=== PATIENT | male | born 1955 | race Caucasian/White ===

== ENCOUNTER → 2017-02-13 | Outpatient (CLI) | payer MEDICARE ==
[~2017-02-13] MED LIST: ADV1DS IH; ASP325T PO; CARV3.122 PO; CLOP75TA PO; HYDR-3454 PO; OMEP20CA12 PO; RANO10003 PO
--- NOTE | 2017-02-13 12:00 | Diagnostic Imaging Report ---
INDICATION: Shortness of breath on exertion. FINDINGS: There is mild cardiomegaly. There has been previous median sternotomy. There is coronary artery bypass graft. There is minimal bibasilar scarring or atelectasis. There is no pleural effusion or pneumothorax. Mediastinum is unremarkable. IMPRESSION: Mild cardiomegaly and some minimal bibasilar atelectasis and/or pneumonitis. Dictated by: Dictated on workstation # [id number]
== END ==
LOC: RAD 09:44
PROVIDERS: ATTEND Internal Medicine Critical Care Medicine
DX: R06.02 Shortness of breath (principal); J44.9 Chronic obstructive pulmonary disease, unspecified; J45.909 Unspecified asthma, uncomplicated
CPT/HCPCS: 71020

== ENCOUNTER → 2017-02-21 | Outpatient (CLI) | payer MEDICARE ==
[~2017-02-21] MED LIST changes: +RT-ALBUTEROL SULF 2.5 MG/3 ML PRE-MIX VIAL IH ONE
== END ==
LOC: RT 15:05
PROVIDERS: ATTEND Nurse Practitioner Family
DX: J44.9 Chronic obstructive pulmonary disease, unspecified (principal); R06.02 Shortness of breath; Z72.0 Tobacco use; J45.909 Unspecified asthma, uncomplicated
CPT/HCPCS: 94060; 94640; 94726; 94729

== ENCOUNTER 2019-01-14 16:59 | Emergency (ER) | payer MEDICARE ==
[~2019-01-14] VITALS: Ht 172.7 cm; Wt 93.0 kg
[~2019-01-14 16:59] MED LIST changes: -RT-ALBUTEROL SULF 2.5 MG/3 ML PRE-MIX VIAL IH ONE
[2019-01-14] MEDS ORDERED: NITROGLYCERIN 2% OINT 1 GM UNIT DOSE PACKET TOP ONE (17:15)
--- NOTE | 2019-01-14 17:17 | ED Chest Pain ---
General Chief Complaint: Chest Pain Stated Complaint: CHEST PAIN Nursing Triage Note: PT AMBULATE TO ROOM 5 WITH CO CHEST PAIN STARTING LAST NIGHT. Nursing Sepsis Screen: No Definite Risk Source: patient, family Exam Limitations: no limitations History of Present Illness Date Seen by Provider: Jan 14, 2019 Time Seen by Provider: 17:13 Initial Comments This 64-year-old white male presents with a complaint of chest pain. The patient is status post bypass surgery. His coordinator of rehabilitation services is in [place]. Patient scheduled for a stress test on Friday with his coordinator of rehabilitation services. The patient describes a series of episodes consisting of moderate to severe chest pain that lasts for only a few minutes. The patient's chest pain appears to be improved with nitroglycerin although frequently the chest pain abates be fore the patient can initiate his sublingual nitroglycerin. Patient denies fever, chills, remarkable radiation of the pressure type anterior moderately severe chest pain, nausea, diaphoresis, headache photophobia or neck pain. Allergies and Home Medications Allergies Coded Allergies: No Known Drug Allergies (Unverified , 08/20/13) Home Medications Aspirin 325 Mg Tab, 325 MG PO DAILY Prescribed by: DELIO WALDEN on 08/20/13 1035 Carvedilol 3.125 Mg Tablet, 1 EACH PO BID Prescribed by: DELIO WALDEN on 08/20/13 1035 Clopidogrel Bisulfate 75 Mg Tablet, 1 EACH PO DAILY Prescribed by: DELIO WALDEN on 08/20/13 1035 Fluticasone/Salmeterol 250 Mcg/50 Mcg Inh, 1 SPRAY IH Q12H Prescribed by: DELIO WALDEN on 08/20/13 1035 Hydrocodone Bit/Acetaminophen 1 Each Tablet, 1-2 EACH PO Q4H PRN for PAIN Prescribed by: AMANDA GUSMAN on 08/21/13 1043 Omeprazole 20 Mg Capsule.dr, 20 MG PO DAILY Prescribed by: DELIO WALDEN on 08/20/13 1035 Ranolazine 1,000 Mg Tab.sr.12h, 500 MG PO BID Prescribed by: DELIO WALDEN on 08/20/13 1035 Patient Home Medication List Home Medication List Reviewed: Yes Review of Systems Review of Systems Constitutional: No chills EENTM: No Double Vision Respiratory: Denies Cough Cardiovascular: Chest Pain; Denies Lightheadedness, Denies Palpitations, Denies Syncope Gastrointestinal: Denies Abdominal Pain Genitourinary: Denies Burning Musculoskeletal: No back pain Skin: No change in color, No rash Psychiatric/Neurological: No Symptoms Reported Endocrine: No Symptoms Reported Hematologic/Lymphatic: No Symptoms Reported Past Uwadtzs-Cggpxa-Boofva Hx Past Med/Social Hx: Reviewed Nursing Past Med/Soc Hx Patient Social History Alcohol Use: Occasionally Uses Recreational Drug Use: No Smoking Status: Current Someday Smoker Type Used: Cigarettes Recent Foreign Travel: No Contact w/Someone Who Travel: No Recent Infectious Disease Expo: No Recent Hopitalizations: No Immunizations Up To Date Tetanus Booster (TDap): More than 5yrs Date of Pneumonia Vaccine: Jun 09, 2008 Date of Influenza Vaccine: Apr 09, 2013 Seasonal Allergies Seasonal Allergies: Yes Past Medical History Surgeries: Yes (Left shoulder, CABG 2010, CARDIAC STENTS 2002) Respiratory: Yes Asthma, Pneumonia, COPD Cardiac: Yes Coronary Artery Disease, High Cholesterol, Hypertension Neurological: No Reproductive Disorders: No Sexually Transmitted Disease: No HIV/AIDS: No Genitourinary: No Gastrointestinal: Yes Gastroesophageal Reflux, Gall Bladder Disease Musculoskeletal: No Fractures Endocrine: No HEENT: Yes Cataract Loss of Vision: Denies Hearing Impairment: Denies Cancer: No Psychosocial: Yes Anxiety Integumentary: No Blood Disorders: No Family Medical History Chest pain 03 FATHER Congestive heart failure 03 FATHER Heart disease 03 FATHER Psychotic disorder 03 MOTHER No Family History of: Abdominal aortic aneurysm [place] disease Alcoholism Aphasia Cancer Cancer of colon Cataract Congenital heart disease Cystic fibrosis Dementia Dysphagia Family history: Allergy Family history: Alzheimer's disease Family history: Arthritis Family history: Asthma Family history: Breast disease Family history: Cardiovascular disease Family history: Coronary thrombosis Family history: Diabetes mellitus Family history: Gastrointestinal disease Family history: Glaucoma Family history: Hypertension Family history: Osteoporosis Family history: Thyroid disorder Headache Hearing loss Hereditary disease History of - anemia History of - disorder History of - respiratory disease History of drug abuse Human immunodeficiency virus (HIV) seropositivity Hypercholesterolemia Infertile Kidney disease Malignant neoplasm of lung Myocardial infarction Parkinson's disease Prostate cancer Seizure disorder Stroke Tuberculosis Visual impairment Physical Exam Vital Signs Vital Signs - First Documented 01/14/19 17:03 Temp 99.2 Pulse 87 Resp 15 B/P (MAP) 173/102 (125) Pulse Ox 96 O2 Delivery Room Air Capillary Refill : Less Than 3 Seconds Height, Weight, BMI Height: 5'8.00" Weight: 205lbs. 0.0oz. 92.367659ii; BMI Method:Stated General Appearance: No Apparent Distress, WD/WN HEENT: PERRL/EOMI, TMs Normal, Normal ENT Inspection Neck: Full Range of Motion, Normal Inspection, Non Tender Respiratory: Chest Non Tender, Lungs Clear, Normal Breath Sounds Cardiovascular: Regular Rate, Rhythm, No Murmur Gastrointestinal: Normal Bowel Sounds, Non Tender, Soft Extremity: Normal Capillary Refill, Normal Inspection Neurologic/Psychiatric: No Motor/Sensory Deficits, Normal Mood/Affect Skin: Normal Color, Warm/Dry Progress/Results/Core Measures Results/Orders Lab Results Laboratory Tests Test 01/14/19 17:05 Range/Units White Blood Count 9.8 4.3-11.0 10^3/uL Red Blood Count 4.84 4.35-5.85 10^6/uL Hemoglobin 14.9 13.3-17.7 G/DL Hematocrit 44 40-54 % Mean Corpuscular Volume 91 80-99 FL Mean Corpuscular Hemoglobin 31 25-34 PG Mean Corpuscular Hemoglobin Concent 34 32-36 G/DL Red Cell Distribution Width 13.0 10.0-14.5 % Platelet Count 293 130-400 10^3/uL Mean Platelet Volume 9.3 7.4-10.4 FL Neutrophils (%) (Auto) 59 42-75 % Lymphocytes (%) (Auto) 25 12-44 % Monocytes (%) (Auto) 9 0-12 % Eosinophils (%) (Auto) 7 0-10 % Basophils (%) (Auto) 0 0-10 % Neutrophils # (Auto) 5.8 1.8-7.8 X 10^3 Lymphocytes # (Auto) 2.4 1.0-4.0 X 10^3 Monocytes # (Auto) 0.8 0.0-1.0 X 10^3 Eosinophils # (Auto) 0.7 H 0.0-0.3 10^3/uL Basophils # (Auto) 0.0 0.0-0.1 10^3/uL Prothrombin Time 12.6 12.2-14.7 SEC INR Comment 0.9 0.8-1.4 Activated Partial Thromboplast Time 27 24-35 SEC Sodium Level 139 135-145 MMOL/L Potassium Level 4.4 3.6-5.0 MMOL/L Chloride Level 106 98-107 MMOL/L Carbon Dioxide Level 23 21-32 MMOL/L Anion Gap 10 5-14 MMOL/L Blood Urea Nitrogen 16 7-18 MG/DL Creatinine 1.35 H 0.60-1.30 MG/DL Estimat Glomerular Filtration Rate 53 BUN/Creatinine Ratio 12 Glucose Level 149 H 70-105 MG/DL Calcium Level 9.7 8.5-10.1 MG/DL Corrected Calcium 9.4 8.5-10.1 MG/DL Magnesium Level 2.4 1.8-2.4 MG/DL Total Bilirubin 0.3 0.1-1.0 MG/DL Aspartate Amino Transf (AST/SGOT) 15 5-34 U/L Alanine Aminotransferase (ALT/SGPT) 20 0-55 U/L Alkaline Phosphatase 65 40-136 U/L Myoglobin 97.5 H 10.0-92.0 NG/ML Troponin I 0.075 H <0.028 NG/ML Total Protein 7.8 6.4-8.2 GM/DL Albumin 4.4 3.2-4.5 GM/DL My Orders Orders - TANIKA, GARRICK Rizvi MD Cbc With Automated Diff (01/14/19 17:12) Magnesium (01/14/19 17:12) Chest 1 View, Ap/Pa Only (01/14/19 17:12) Ekg Tracing (01/14/19 17:12) Cardiac Profile 1 (01/14/19 17:12) Comprehensive Metabolic Panel (01/14/19 17:12) Myoglobin Serum (01/14/19 17:12) Protime With Inr (01/14/19 17:12) Partial Thromboplastin Time (01/14/19 17:12) O2 (01/14/19 17:12) Monitor-Rhythm Ecg Trace Only (01/14/19 17:12) Lipid Panel (01/15/19 06:00) Ed Iv/Invasive Line Start (01/14/19 17:12) Nitroglycerin Ointment (Nitrobid Ointme (01/14/19 17:15) Medications Given in ED Current Medications Medications Dose Ordered Sig/Tina Route Start Time Stop Time Status Last Admin Dose Admin Nitroglycerin 1 inch ONCE ONCE TOP 01/14/19 17:15 01/14/19 17:16 DC 01/14/19 17:27 1 INCH Vital Signs/I&O 01/14/19 01/14/19 17:03 17:13 Temp 99.2 Pulse 87 Resp 15 B/P (MAP) 173/102 (125) Pulse Ox 96 O2 Delivery Room Air Room Air Blood Pressure Mean: 125 Progress Progress Note : Time: 17:58 Progress Note The patient's EKG demonstrated nonspecific ST-T wave changes. The patient's troponin was mildly elevated at 0.075. Treatment patient received an inch of Nitropaste emergency department and had no further chest pain. I placed a call to his coordinator of rehabilitation services, Dr. Salazar, in [facility] for transfer for further eval and care. Departure Impression Primary Impression: Chest pain Qualified Codes: I20.0 - Unstable angina Additional Impressions: Elevated troponin Coronary artery disease Qualified Codes: I25.110 - Atherosclerotic heart disease of [place] coronary artery with unstable angina pectoris Disposition: SHT-TRM HOSP Condition: Improved Departure-Patient Inst. Referrals: [facility] (PCP) Primary Care Physician MADALYN RUSHING APRN (Family) Primary Care Physician GARRICK SAGASTUME MD Jan 14, 2019 17:16
[2019-01-14 17:18] LABS: BASOPHILS % (AUTO) 0 % (0-10); EOSINOPHILS # (AUTO) 0.7 10^3/uL (0.0-0.3); EOSINOPHILS % (AUTO) 7 % (0-10); HEMATOCRIT 44 % (40-54); HEMOGLOBIN 14.9 G/DL (13.3-17.7); LYMPHOCYTES # (AUTO) 2.4 X 10^3 (1.0-4.0); LYMPHOCYTES % (AUTO) 25 % (12-44); MEAN CORPUSCULAR HEMOGLOBIN 31 PG (25-34); MEAN CORPUSCULAR HGB CONC 34 G/DL (32-36); MEAN CORPUSCULAR VOLUME 91 FL (80-99); MEAN PLATELET VOLUME 9.3 FL (7.4-10.4); MONOCYTES # (AUTO) 0.8 X 10^3 (0.0-1.0); MONOCYTES % (AUTO) 9 % (0-12); NEUTROPHILS # (AUTO) 5.8 X 10^3 (1.8-7.8); NEUTROPHILS % (AUTO) 59 % (42-75); PLATELET COUNT 293 10^3/uL (130-400); WHITE BLOOD COUNT 9.8 10^3/uL (4.3-11.0)
--- NOTE | 2019-01-14 17:34 | Diagnostic Imaging Report ---
INDICATION: Chest pain. COMPARISON: Comparison made with prior examination from 02/13/2017. FINDINGS: There is cardiomegaly. There has been previous median sternotomy and coronary artery bypass graft. There is no pleural effusion, pneumothorax, or pneumonia. Mediastinum is unremarkable. IMPRESSION: No acute cardiopulmonary abnormality. Mild cardiomegaly. Dictated by: Dictated on workstation # [id number]
[2019-01-14 17:38] LABS: INR 0.9 (0.8-1.4); PROTHROMBIN TIME PATIENT 12.6 SEC (12.2-14.7)
[2019-01-14 17:43] LABS: ALBUMIN 4.4 GM/DL (3.2-4.5); BILIRUBIN,TOTAL 0.3 MG/DL (0.1-1.0); CALCIUM 9.7 MG/DL (8.5-10.1); CREATININE SERUM 1.35 MG/DL (0.60-1.30); MAGNESIUM 2.4 MG/DL (1.8-2.4); POTASSIUM 4.4 MMOL/L (3.6-5.0); TOTAL PROTEIN 7.8 GM/DL (6.4-8.2)
[2019-01-14 19:23] VITALS: BP 135/84
--- OUTSIDE RECORDS SUMMARY | 2019-01-15 00:50 | XMS REPORT ---
Author Author WILLIAM Banegas Organization [facility] Address [address] [place] [address] Care Team Providers Care Flame Planer Name Role Phone WILLIAM Banegas Unavailable PROBLEMS Type Condition ICD9-CM Code ARQ03-LD Code Onset Dates Condition Status SNOMED Code Problem Dental caries K02.9 Active 74909792 Problem Gastroesophageal reflux disease with esophagitis K21.0 Active 865525481 Problem Irregular heart rhythm I49.9 Active 329640965 Problem Elevated LDL cholesterol level E78.00 Active 525892404 Problem Low serum HDL R74.8 Active 339009972 Problem Stable angina pectoris I20.8 Active 407500285 Problem Obesity (BMI 30.0-34.9) E66.9 Active 595775815179333 Problem Moderate episode of recurrent major depressive disorder F33.1 Active 603270379 Problem Periodontal disease K05.6 Active 7560063 Problem Coronary artery disease involving [place] coronary artery of [place] heart without angina pectoris I25.10 Active 2118876270555 Problem Pulmonary emphysema, unspecified emphysema type J43.9 Active 26072781 Problem Dental caries extending into dentine K02.62 Active 166748352 Problem Essential hypertension I10 Active 65574656 ALLERGIES No Known Allergies ENCOUNTERS Encounter Location Date Diagnosis [facility] [id number] [place] [phone] Feb, Coronary artery disease involving [place] coronary artery of [place] heart without angina pectoris I25.10 ; Pulmonary emphysema, unspecified emphysema type J43.9 ; Stable angina pectoris I20.8 ; Gastroesophageal reflux disease with esophagitis K21.0 ; Essential hypertension I10 ; Moderate episode of recurrent major depressive disorder F33.1 and Prediabetes R73.03 [facility] [address] [facility] [id number] [place] [address] Nov, Moderate episode of recurrent major depressive disorder F33.1 and Pulmonary emphysema, unspecified emphysema type J43.9 [facility] [id number] [place] [address] October, Moderate episode of recurrent major depressive disorder F33.1 [facility] [id number] [place] [id number] October, Dental caries K02.9 [facility] [id number] [place] [phone] Sep, Coronary artery disease involving [place] coronary artery of [place] heart without angina pectoris I25.10 ; Essential hypertension I10 ; Prediabetes R73.03 ; Gastroesophageal reflux disease with esophagitis K21.0 ; Elevated LDL cholesterol level E78.00 ; Dental caries K02.9 ; Low serum HDL R74.8 ; Pulmonary emphysema, unspecified emphysema type J43.9 ; Stable angina pectoris I20.8 ; Irregular heart rhythm I49.9 and Obesity (BMI 30.0-34.9) E66.9 [address] [place] [id number] [place] [phone] Sep, Coronary artery disease involving [place] coronary artery of [place] heart without angina pectoris I25.10 ; Gastroesophageal reflux disease with esophagitis K21.0 ; Essential hypertension I10 ; Prediabetes R73.03 ; Elevated LDL cholesterol level E78.00 ; Low serum HDL R74.8 ; Pulmonary emphysema, unspecified emphysema type J43.9 ; Stable angina pectoris I20.8 ; Irregular heart rhythm I49.9 ; Obesity (BMI 30.0-34.9) E66.9 and Dental caries K02.9 [place] [address] [address] Sep, Dental examination Z01.20 ; Periodontal disease K05.6 and Dental caries extending into dentine K02.62 [place] [place] [id number] [place] [phone] Aug, Pulmonary emphysema, unspecified emphysema type J43.9 [place] [id number] [place] [phone] May, Coronary artery disease involving [place] coronary artery of [place] heart without angina pectoris I25.10 ; Pulmonary emphysema, unspecified emphysema type J43.9 ; Elevated fasting glucose R73.01 ; Elevated LDL cholesterol level E78.00 ; Obesity (BMI 30.0-34.9) E66.9 and Gastroesophageal reflux disease with esophagitis K21.0 [address] [place] [id number] [place] [phone] Apr, [facility] [address] [id number] Jan, Dental examination Z01.20 [place] [address] [phone] Jan, [place] [id number] [place] [phone] Jan, Pulmonary emphysema, unspecified emphysema type J43.9 ; Gastroesophageal reflux disease with esophagitis K21.0 ; Obesity (BMI 30.0-34.9) E66.9 ; Irregular heart rhythm I49.9 ; History of coronary artery disease Z86.79 and Stable angina pectoris I20.8 [place] [id number] [place] [phone] Jan, Dental examination Z01.20 and Dental caries K02.9 [id number] [place] [phone] Aug, [id number] [place] [phone] Aug, Pulmonary emphysema, unspecified emphysema type J43.9 ; Elevated hemoglobin A1c R73.09 ; Gastroesophageal reflux disease with esophagitis K21.0 ; Obesity (BMI 30.0-34.9) E66.9 ; Elevated LDL cholesterol level E78.00 ; Low serum HDL R74.8 and Elevated fasting glucose R73.01 [place] [id number] [place] [phone] Jul, Pulmonary emphysema, unspecified emphysema type J43.9 [place] [address] [address] 24 Jul, 2016 [address] [place] [id number] [place] [phone] 21 Jul, 2016 Encounter to establish care Z76.89 ; History of coronary artery disease Z86.79 ; Pulmonary emphysema, unspecified emphysema type J43.9 ; 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 ; Stable angina pectoris I20.8 ; Gastroesophageal reflux disease with esophagitis K21.0 ; Encounter for immunization Z23 ; Dental caries K02.9 ; Obesity (BMI 30.0-34.9) E66.9 and Irregular heart rhythm I49.9 [address] [place] [id number] [place] [phone] 14 Jul, 2016 Dental examination Z01.20 [place] [place] [address] [place] [phone] 14 Jul, 2016 Encounter to establish care Z76.89 ; History of coronary artery disease Z86.79 ; 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 ; Pulmonary emphysema, unspecified emphysema type J43.9 ; Stable angina pectoris I20.8 ; Gastroesophageal reflux disease with esophagitis K21.0 ; Encounter for immunization Z23 ; Dental caries K02.9 ; Obesity (BMI 30.0-34.9) E66.9 and Irregular heart rhythm I49.9 IMMUNIZATIONS No Known Immunizations SOCIAL HISTORY Never Assessed REASON FOR VISIT Depression fu -- jose booker PLAN OF CARE Activity Details Follow Up 3 Months, prn Reason:CHM/COPD/HTN w/Terri VITAL SIGNS Height 68 in 2018-02-27 Weight 209.0 lbs 2018-02-27 Temperature 97.5 degrees Fahrenheit 2018-02-27 BMI 31.77 kg/m2 2018-02-27 Blood pressure systolic 126 mmHg 2018-02-27 Blood pressure diastolic 70 mmHg 2018-02-27 MEDICATIONS Medication Instructions Dosage Frequency Start Date End Date Duration Status Aspirin 325 MG Orally Once a day 1 tablet 24h Active Nitrostat 0.4 MG Sublingual prn Active Ranexa 500 MG Orally Twice a day 1 tablet 12h Active Plavix 75 MG Orally Once a day 1 tablet 24h Active Protonix 20 MG TAKE ONE TABLET BY MOUTH ONCE DAILY Active MetFORMIN HCl ER 500 MG TAKE ONE TABLET BY MOUTH ONCE DAILY WITH EVENING MEAL Active Lisinopril 2.5 MG TAKE ONE TABLET BY MOUTH ONCE DAILY Active Sertraline HCl 25 MG Orally Once a day 1 tablet 24h 25 Nov, 2017 Active Advair Diskus 250-50 MCG/DOSE Inhalation Twice a day 1 puff 12h Active Albuterol Sulfate (2.5 MG/3ML) 0.083% Inhalation Three times a day 3 ml 8h Active Coreg 3.125 MG Orally 2 times a day 1 tablet 12h Active Imdur 120 MG Orally Once a day 1 tablet 24h Active Proventil HFA 108 (90 Base) MCG/ACT Inhalation every 4 hrs 2 puffs as needed 4h Active Atorvastatin Calcium 10 mg Orally Once a day 1 tablet 24h 24 Jul, 2016 Active RESULTS No Results PROCEDURES Procedure Date Ordered Result Body Site [facility] VISIT ESTABLISHED PATIENT Feb 27, 2018 INSTRUCTIONS MEDICATIONS ADMINISTERED No Known Medications MEDICAL (GENERAL) HISTORY Type Description Date Medical History coronary artery disease Medical History chronic obstructive pulmonary disease (COPD) Medical History Cardiac stenting done by Dr. Rebollar: last visit in April Medical History CABG done about 6-[address] Lucio Surgical History coronary artery bypass graft 2010 Surgical History rotator cuff tear repair, left Surgical History had two teeth pulled Hospitalization History pneumonia Hospitalization History heart bypass, Hospitalization History heart attack X3
--- OUTSIDE RECORDS SUMMARY | 2019-01-15 00:50 | XMS REPORT ---
Author Author WILKINSWILLIAM Roberts Organization [facility] Address [address] [place] [address] Care Team Providers Care Paper Cone Grader Name Role Phone WILLIAM WILKINS Unavailable PROBLEMS Type Condition ICD9-CM Code [id number] Code Onset Dates Condition Status SNOMED Code Problem Dental caries K02.9 Active 15618779 Problem Gastroesophageal reflux disease with esophagitis K21.0 Active 685581614 Problem Irregular heart rhythm I49.9 Active 909618331 Problem Elevated LDL cholesterol level E78.00 Active 912128608 Problem Low serum HDL R74.8 Active 388645388 Problem Stable angina pectoris I20.8 Active 632644025 Problem Obesity (BMI 30.0-34.9) E66.9 Active 562324153615946 Problem Moderate episode of recurrent major depressive disorder F33.1 Active 539161389 Problem Periodontal disease K05.6 Active 8325964 Problem Coronary artery disease involving [place] coronary artery of [place] heart without angina pectoris I25.10 Active 8549615176610 Problem Pulmonary emphysema, unspecified emphysema type J43.9 Active 30162143 Problem Dental caries extending into dentine K02.62 Active 253483385 Problem Essential hypertension I10 Active 71336153 ALLERGIES No Known Allergies ENCOUNTERS Encounter Location Date Diagnosis [facility] [id number], [place] [address] Feb, [facility] [address], [place] [address] Nov, Moderate episode of recurrent major depressive disorder F33.1 and Pulmonary emphysema, unspecified emphysema type J43.9 [facility] [id number], [place] [address] October, Moderate episode of recurrent major depressive disorder F33.1 [facility] [address] [id number] [id number] October, Dental caries K02.9 [place] [id number], [place] [address] Sep, Coronary artery disease involving [place] coronary artery of [place] heart without angina pectoris I25.10 ; Essential hypertension I10 ; Prediabetes R73.03 ; Gastroesophageal reflux disease with esophagitis K21.0 ; Elevated LDL cholesterol level E78.00 ; Dental caries K02.9 ; Low serum HDL R74.8 ; Pulmonary emphysema, unspecified emphysema type J43.9 ; Stable angina pectoris I20.8 ; Irregular heart rhythm I49.9 and Obesity (BMI 30.0-34.9) E66.9 [place] [address] [place] [address] Sep, Coronary artery disease involving [place] coronary artery of [place] heart without angina pectoris I25.10 ; Gastroesophageal reflux disease with esophagitis K21.0 ; Essential hypertension I10 ; Prediabetes R73.03 ; Elevated LDL cholesterol level E78.00 ; Low serum HDL R74.8 ; Pulmonary emphysema, unspecified emphysema type J43.9 ; Stable angina pectoris I20.8 ; Irregular heart rhythm I49.9 ; Obesity (BMI 30.0-34.9) E66.9 and Dental caries K02.9 [place] [address], [place] [address] Sep, Dental examination Z01.20 ; Periodontal disease K05.6 and Dental caries extending into dentine K02.62 [place] [address], [place] [address] Aug, Pulmonary emphysema, unspecified emphysema type J43.9 [place] [address] [place] [address] May, Coronary artery disease involving [place] coronary artery of [place] heart without angina pectoris I25.10 ; Pulmonary emphysema, unspecified emphysema type J43.9 ; Elevated fasting glucose R73.01 ; Elevated LDL cholesterol level E78.00 ; Obesity (BMI 30.0-34.9) E66.9 and Gastroesophageal reflux disease with esophagitis K21.0 [facility] [id number], [place] [address] 07 Apr, 2017 [facility] [address] [id number] Jan, Dental examination Z01.20 [facility] [address], [place] [address] Jan, [place] [address] [place] [address] Jan, Pulmonary emphysema, unspecified emphysema type J43.9 ; Gastroesophageal reflux disease with esophagitis K21.0 ; Obesity (BMI 30.0-34.9) E66.9 ; Irregular heart rhythm I49.9 ; History of coronary artery disease Z86.79 and Stable angina pectoris I20.8 [place] [address] [place] [address] Jan, Dental examination Z01.20 and Dental caries K02.9 [place] [address], [place] [address] Aug, [place] [id number] [place] [address] Aug, Pulmonary emphysema, unspecified emphysema type J43.9 ; Elevated hemoglobin A1c R73.09 ; Gastroesophageal reflux disease with esophagitis K21.0 ; Obesity (BMI 30.0-34.9) E66.9 ; Elevated LDL cholesterol level E78.00 ; Low serum HDL R74.8 and Elevated fasting glucose R73.01 [place] [id number], [place] [address] Jul, Pulmonary emphysema, unspecified emphysema type J43.9 [place] [address], [place] [address] Jul, [facility] [address], [place] [address] Jul, Encounter to establish care Z76.89 ; History of coronary artery disease Z86.79 ; Pulmonary emphysema, unspecified emphysema type J43.9 ; 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 ; Stable angina pectoris I20.8 ; Gastroesophageal reflux disease with esophagitis K21.0 ; Encounter for immunization Z23 ; Dental caries K02.9 ; Obesity (BMI 30.0-34.9) E66.9 and Irregular heart rhythm I49.9 [facility] [address] [facility] [id number], [place] [address] 14 Jul, 2016 Dental examination Z01.20 [facility] [address] [facility] [id number], [place] [address] 14 Jul, 2016 Encounter to establish care [...] SOCIAL HISTORY Never Assessed REASON FOR VISIT depression F/U -- jose booker PLAN OF CARE Activity Details Follow Up 3 Months, prn Reason:CHM/Depression VITAL SIGNS Height 68 in 2017-12-01 Weight 208.0 lbs 2017-12-01 Temperature 98.7 degrees Fahrenheit 2017-12-01 Heart Rate 78 bpm 2017-12-01 Respiratory Rate 18 2017-12-01 BMI 31.62 kg/m2 2017-12-01 Blood pressure systolic 128 mmHg 2017-12-01 Blood pressure diastolic 80 mmHg 2017-12-01 MEDICATIONS Medication Instructions Dosage Frequency Start Date End Date Duration Status Aspirin 325 MG Orally Once a day 1 tablet 24h Active Imdur 120 MG Orally Once a day 1 tablet 24h Active Lisinopril 2.5 MG TAKE ONE TABLET BY MOUTH ONCE DAILY 90 Active Proventil HFA 108 (90 Base) MCG/ACT Inhalation every 4 hrs 2 puffs as needed 4h 12 months Active Plavix 75 MG Orally Once a day 1 tablet 24h Active Advair Diskus 250-50 MCG/DOSE Inhalation Twice a day 1 puff 12h Jul, Active MetFORMIN HCl ER 500 MG TAKE ONE TABLET BY MOUTH ONCE DAILY WITH EVENING MEAL Active Coreg 3.125 MG Orally 2 times a day 1 tablet 12h Active Sertraline HCl 25 MG Orally Once a day 1 tablet 24h Nov, 90 days Active Nitrostat 0.4 MG Sublingual prn Active Albuterol Sulfate (2.5 MG/3ML) 0.083% Inhalation Three times a day 3 ml 8h Active Ranexa 500 MG Orally Twice a day 1 tablet 12h Active Protonix 20 MG TAKE ONE TABLET BY MOUTH ONCE DAILY Active Atorvastatin Calcium 10 mg Orally Once a day 1 tablet 24h 24 Jul, 2016 Active RESULTS No Results PROCEDURES Procedure Date Ordered Result Body Site [facility] VISIT ESTABLISHED PATIENT December 01, 2017 INSTRUCTIONS MEDICATIONS ADMINISTERED No Known Medications MEDICAL [...]
--- OUTSIDE RECORDS SUMMARY | 2019-01-15 00:50 | XMS REPORT ---
Author Author WILKINSIWLLIAM Roberts Organization [facility] Address [address] [place] [address] Care Team Providers Care Pot Fluxer Name Role Phone WILLIAM WILKINS Unavailable PROBLEMS Type Condition ICD9-CM Code [id number] Code Onset Dates Condition Status SNOMED Code Problem Dental caries K02.9 Active 72588898 Problem Gastroesophageal reflux disease with esophagitis K21.0 Active 249433634 Problem Irregular heart rhythm I49.9 Active 301432505 Problem Elevated LDL cholesterol level E78.00 Active 660043584 Problem Low serum HDL R74.8 Active 902338404 Problem Stable angina pectoris I20.8 Active 500312745 Problem Obesity (BMI 30.0-34.9) E66.9 Active 902664877040316 Problem Moderate episode of recurrent major depressive disorder F33.1 Active 364807175 Problem Periodontal disease K05.6 Active 5880221 Problem Coronary artery disease involving [place] coronary artery of [place] heart without angina pectoris I25.10 Active 8995580739596 Problem Pulmonary emphysema, unspecified emphysema type J43.9 Active 39273481 Problem Dental caries extending into dentine K02.62 Active 995092283 Problem Essential hypertension I10 Active 21902741 ALLERGIES No Known Allergies ENCOUNTERS Encounter Location Date Diagnosis [facility] [address] [address] Nov, Moderate episode of recurrent major depressive disorder F33.1 and Pulmonary emphysema, unspecified emphysema type J43.9 [facility] [address] [place] [address] October, Moderate episode of recurrent major depressive disorder F33.1 [facility] [address] [id number] [id number] October, Dental caries K02.9 [facility] [id number] [place] [address] Sep, Coronary artery disease involving [place] coronary artery of [place] heart without angina pectoris I25.10 ; Essential hypertension I10 ; Prediabetes R73.03 ; Gastroesophageal reflux disease with esophagitis K21.0 ; Elevated LDL cholesterol level E78.00 ; Dental caries K02.9 ; Low serum HDL R74.8 ; Pulmonary emphysema, unspecified emphysema type J43.9 ; Stable angina pectoris I20.8 ; Irregular heart rhythm I49.9 and Obesity (BMI 30.0-34.9) E66.9 [place] [id number] [place] [address] Sep, Coronary artery disease involving [place] coronary artery of [place] heart without angina pectoris I25.10 ; Gastroesophageal reflux disease with esophagitis K21.0 ; Essential hypertension I10 ; Prediabetes R73.03 ; Elevated LDL cholesterol level E78.00 ; Low serum HDL R74.8 ; Pulmonary emphysema, unspecified emphysema type J43.9 ; Stable angina pectoris I20.8 ; Irregular heart rhythm I49.9 ; Obesity (BMI 30.0-34.9) E66.9 and Dental caries K02.9 [place] [id number] [place] [address] Sep, Dental examination Z01.20 ; Periodontal disease K05.6 and Dental caries extending into dentine K02.62 [place] [address] [place] [address] Aug, Pulmonary emphysema, unspecified emphysema type J43.9 [place] [address] [place] [address] May, Coronary artery disease involving [place] coronary artery of [place] heart without angina pectoris I25.10 ; Pulmonary emphysema, unspecified emphysema type J43.9 ; Elevated fasting glucose R73.01 ; Elevated LDL cholesterol level E78.00 ; Obesity (BMI 30.0-34.9) E66.9 and Gastroesophageal reflux disease with esophagitis K21.0 [place] [address] [place] [address] Apr, [facility] [id number] [id number] Jan, Dental examination Z01.20 [place] [address] [address] Jan, [place] [address] [place] [address] Jan, Pulmonary emphysema, unspecified emphysema type J43.9 ; Gastroesophageal reflux disease with esophagitis K21.0 ; Obesity (BMI 30.0-34.9) E66.9 ; Irregular heart rhythm I49.9 ; History of coronary artery disease Z86.79 and Stable angina pectoris I20.8 [place] [id number] [place] [address] Jan, Dental examination Z01.20 and Dental caries K02.9 [place] [address] [place] [address] Aug, [place] [address] [place] [address] Aug, Pulmonary emphysema, unspecified emphysema type J43.9 ; Elevated hemoglobin A1c R73.09 ; Gastroesophageal reflux disease with esophagitis K21.0 ; Obesity (BMI 30.0-34.9) E66.9 ; Elevated LDL cholesterol level E78.00 ; Low serum HDL R74.8 and Elevated fasting glucose R73.01 [place] [address] [address] Jul, Pulmonary emphysema, unspecified emphysema type J43.9 [place] [address] [place] [address] Jul, [place] [address] [place] [address] Jul, Encounter to establish care Z76.89 ; History of coronary artery disease Z86.79 ; Pulmonary emphysema, unspecified emphysema type J43.9 ; 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 ; Stable angina pectoris I20.8 ; Gastroesophageal reflux disease with esophagitis K21.0 ; Encounter for immunization Z23 ; Dental caries K02.9 ; Obesity (BMI 30.0-34.9) E66.9 and Irregular heart rhythm I49.9 [facility] [address] [facility] [id number] [address] 14 Jul, 2016 Dental examination Z01.20 [facility] [address] [facility] [id number] [address] 14 Jul, 2016 Encounter to establish care [...] SOCIAL HISTORY Never Assessed REASON FOR VISIT Hypertension--tjanssenMA, --pt c/o of having some teeth issues but is unable to do anything about it at this time. , --refill on proventil inhaler PLAN OF CARE Activity Details Follow Up 3 Months, prn Reason:CHNM/HTN/CAD VITAL SIGNS Height 68 in 2017-09-11 Weight 207.5 lbs 2017-09-11 Temperature 98.8 degrees Fahrenheit 2017-09-11 Heart Rate 78 bpm 2017-09-11 Respiratory Rate 20 2017-09-11 BMI 31.55 kg/m2 2017-09-11 Blood pressure systolic 128 mmHg 2017-09-11 Blood pressure diastolic 78 mmHg 2017-09-11 MEDICATIONS Medication Instructions Dosage Frequency Start Date End Date Duration Status Lisinopril 2.5 MG TAKE ONE TABLET BY MOUTH ONCE DAILY Active Coreg 3.125 MG Orally 2 times a day 1 tablet 12h Active Ranexa 500 MG Orally Twice a day 1 tablet 12h Active Aspirin 325 MG Orally Once a day 1 tablet 24h Active Plavix 75 MG Orally Once a day 1 tablet 24h Active Proventil HFA 108 (90 Base) MCG/ACT Inhalation every 4 hrs 2 puffs as needed 4h 12 months Active Imdur 120 MG Orally Once a day 1 tablet 24h Active Advair Diskus 250-50 MCG/DOSE Inhalation Twice a day 1 puff 12h 14 Jul, 2016 Active MetFORMIN HCl ER 500 MG TAKE ONE TABLET BY MOUTH ONCE DAILY WITH EVENING MEAL Active Atorvastatin Calcium 10 mg Orally Once a day 1 tablet 24h 24 Jul, 2016 Active Protonix 20 MG TAKE ONE TABLET BY MOUTH ONCE DAILY Active Nitrostat 0.4 MG Sublingual prn Active Albuterol Sulfate (2.5 MG/3ML) 0.083% Inhalation Three times a day 3 ml 8h Active RESULTS No Results PROCEDURES Procedure Date Ordered Result Body Site [facility] VISIT ESTABLISHED PATIENT September 11, 2017 INSTRUCTIONS MEDICATIONS ADMINISTERED No Known Medications [...]
--- OUTSIDE RECORDS SUMMARY | 2019-01-15 00:50 | XMS REPORT ---
Author Author WILLIAM WILKINS Organization [facility] Address [address] [place] [address] Care Team Providers Care Concrete Saw Operator Name Role Phone WILLIAM WILKINS Unavailable PROBLEMS Type Condition ICD9-CM Code BVE83-ZA Code Onset Dates Condition Status SNOMED Code Problem Dental caries K02.9 Active 47484114 Problem Gastroesophageal reflux disease with esophagitis K21.0 Active 331411611 Problem Irregular heart rhythm I49.9 Active 542727173 Problem Elevated LDL cholesterol level E78.00 Active 786423070 Problem Low serum HDL R74.8 Active 831862271 Problem Stable angina pectoris I20.8 Active 842382326 Problem Obesity (BMI 30.0-34.9) E66.9 Active 827612113970950 Problem Moderate episode of recurrent major depressive disorder F33.1 Active 783873687 Problem Periodontal disease K05.6 Active 5592575 Problem Coronary artery disease involving [place] coronary artery of [place] heart without angina pectoris I25.10 Active 4603747499878 Problem Pulmonary emphysema, unspecified emphysema type J43.9 Active 78679760 Problem Dental caries extending into dentine K02.62 Active 123353182 Problem Essential hypertension I10 Active 82514327 ALLERGIES No Information ENCOUNTERS Encounter Location Date Diagnosis [facility] [address] [place] [address] Nov, Moderate episode of recurrent major depressive disorder F33.1 and Pulmonary emphysema, unspecified emphysema type J43.9 [facility] [address] [place] [address] October, Moderate episode of recurrent major depressive disorder F33.1 [facility] [id number] [id number] October, Dental caries K02.9 [facility] [id number] [place] [address] Sep, Coronary artery disease involving [place] coronary artery of [place] heart without angina pectoris I25.10 ; Essential hypertension I10 ; Prediabetes R73.03 ; Gastroesophageal reflux disease with esophagitis K21.0 ; Elevated LDL cholesterol level E78.00 ; Dental caries K02.9 ; Low serum HDL R74.8 ; Pulmonary emphysema, unspecified emphysema type J43.9 ; Stable angina pectoris I20.8 ; Irregular heart rhythm I49.9 and Obesity (BMI 30.0-34.9) E66.9 [place] [address] [place] [address] Sep, Coronary artery disease involving [place] coronary artery of [place] heart without angina pectoris I25.10 ; Gastroesophageal reflux disease with esophagitis K21.0 ; Essential hypertension I10 ; Prediabetes R73.03 ; Elevated LDL cholesterol level E78.00 ; Low serum HDL R74.8 ; Pulmonary emphysema, unspecified emphysema type J43.9 ; Stable angina pectoris I20.8 ; Irregular heart rhythm I49.9 ; Obesity (BMI 30.0-34.9) E66.9 and Dental caries K02.9 [place] [address] [place] [address] Sep, Dental examination Z01.20 ; Periodontal disease K05.6 and Dental caries extending into dentine K02.62 [place] [address], [place] [address] Aug, Pulmonary emphysema, unspecified emphysema type J43.9 [place] [address] [place] [address] May, Coronary artery disease involving [place] coronary artery of [place] heart without angina pectoris I25.10 ; Pulmonary emphysema, unspecified emphysema type J43.9 ; Elevated fasting glucose R73.01 ; Elevated LDL cholesterol level E78.00 ; Obesity (BMI 30.0-34.9) E66.9 and Gastroesophageal reflux disease with esophagitis K21.0 [place] [id number] [place] [address] Apr, [facility] [id number] [id number] Jan, Dental examination Z01.20 [place] [address] [place] [address] Jan, [place] [id number] [place] [address] Jan, Pulmonary emphysema, unspecified emphysema type J43.9 ; Gastroesophageal reflux disease with esophagitis K21.0 ; Obesity (BMI 30.0-34.9) E66.9 ; Irregular heart rhythm I49.9 ; History of coronary artery disease Z86.79 and Stable angina pectoris I20.8 [place] [id number] [place] [address] Jan, Dental examination Z01.20 and Dental caries K02.9 [place] [address] [place] [address] Aug, [place] [id number] [place] [address] Aug, Pulmonary emphysema, unspecified emphysema type J43.9 ; Elevated hemoglobin A1c R73.09 ; Gastroesophageal reflux disease with esophagitis K21.0 ; Obesity (BMI 30.0-34.9) E66.9 ; Elevated LDL cholesterol level E78.00 ; Low serum HDL R74.8 and Elevated fasting glucose R73.01 [place] [address], [place] [address] Jul, Pulmonary emphysema, unspecified emphysema type J43.9 [place] [address], [place] [address] Jul, [place] [address] [place] [address] Jul, Encounter to establish care Z76.89 ; History of coronary artery disease Z86.79 ; Pulmonary emphysema, unspecified emphysema type J43.9 ; 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 [address] [facility] [id number] [place] [address] 14 Jul, [address] [facility] [address] [facility] [id number], [place] [address] 14 Jul, 2016 Encounter to establish care [...] SOCIAL HISTORY Never Assessed REASON FOR VISIT Lab (walk-in) PLAN OF CARE VITAL SIGNS MEDICATIONS No Known Medications RESULTS No Results PROCEDURES Procedure Date Ordered Result Body Site Hemoglobin Test Send Out 0 dollar September 15, 2017 LAB NOT BILLED BY [facility] September 15, 2017 INSTRUCTIONS MEDICATIONS ADMINISTERED No Known Medications [...]
--- OUTSIDE RECORDS SUMMARY | 2019-01-15 00:50 | XMS REPORT ---
Author Author MENDOZA LADAN [facility] Address Unknown Care Team Providers Care Cardiovascular Operating Room Nurse Name Role Phone LADAN DONALDSON Unavailable PROBLEMS Type Condition ICD9-CM Code [id number] Code Onset Dates Condition Status SNOMED Code Problem Dental caries K02.9 Active 88185519 Problem Gastroesophageal reflux disease with esophagitis K21.0 Active 383832506 Problem Irregular heart rhythm I49.9 Active 552465076 Problem Elevated LDL cholesterol level E78.00 Active 442102327 Problem Low serum HDL R74.8 Active 257361564 Problem Stable angina pectoris I20.8 Active 164508312 Problem Obesity (BMI 30.0-34.9) E66.9 Active 652438590982043 Problem Moderate episode of recurrent major depressive disorder F33.1 Active 466274294 Problem Periodontal disease K05.6 Active 7748352 Problem Coronary artery disease involving catawba coronary artery of catawba heart without angina pectoris I25.10 Active 1883555582827 Problem Pulmonary emphysema, unspecified emphysema type J43.9 Active 14824524 Problem Dental caries extending into dentine K02.62 Active 499735414 Problem Essential hypertension I10 Active 44667046 ALLERGIES No Known Allergies ENCOUNTERS Encounter Location Date Diagnosis [facility] [address] [address] Nov, Moderate episode of recurrent major depressive disorder F33.1 and Pulmonary emphysema, unspecified emphysema type J43.9 [facility] [id number] [address] October, Moderate episode of recurrent major depressive disorder F33.1 [facility] [address] [id number] [id number] October, Dental caries K02.9 [facility] [address] [place] [address] Sep, Coronary artery disease involving catawba coronary artery of catawba heart without angina pectoris I25.10 ; Essential hypertension I10 ; Prediabetes R73.03 ; Gastroesophageal reflux disease with esophagitis K21.0 ; Elevated LDL cholesterol level E78.00 ; Dental caries K02.9 ; Low serum HDL R74.8 ; Pulmonary emphysema, unspecified emphysema type J43.9 ; Stable angina pectoris I20.8 ; Irregular heart rhythm I49.9 and Obesity (BMI 30.0-34.9) E66.9 [place] [id number] [place] [address] Sep, Coronary artery disease involving catawba coronary artery of catawba heart without angina pectoris I25.10 ; Gastroesophageal reflux disease with esophagitis K21.0 ; Essential hypertension I10 ; Prediabetes R73.03 ; Elevated LDL cholesterol level E78.00 ; Low serum HDL R74.8 ; Pulmonary emphysema, unspecified emphysema type J43.9 ; Stable angina pectoris I20.8 ; Irregular heart rhythm I49.9 ; Obesity (BMI 30.0-34.9) E66.9 and Dental caries K02.9 [place] [id number] [place] [address] Sep, Dental examination Z01.20 ; Periodontal disease K05.6 and Dental caries extending into dentine K02.62 [place] [id number] [place] [address] Aug, Pulmonary emphysema, unspecified emphysema type J43.9 [place] [id number] [place] [address] May, Coronary artery disease involving catawba coronary artery of catawba heart without angina pectoris I25.10 ; Pulmonary emphysema, unspecified emphysema type J43.9 ; Elevated fasting glucose R73.01 ; Elevated LDL cholesterol level E78.00 ; Obesity (BMI 30.0-34.9) E66.9 and Gastroesophageal reflux disease with esophagitis K21.0 [facility] [address] [place] [address] Apr, [facility] [id number] [id number] Jan, Dental examination Z01.20 [place] [id number] [place] [address] Jan, [place] [id number] [place] [address] Jan, Pulmonary emphysema, unspecified emphysema type J43.9 ; Gastroesophageal reflux disease with esophagitis K21.0 ; Obesity (BMI 30.0-34.9) E66.9 ; Irregular heart rhythm I49.9 ; History of coronary artery disease Z86.79 and Stable angina pectoris I20.8 [place] [id number] [place] [address] Jan, Dental examination Z01.20 and Dental caries K02.9 [place] [id number] [place] [phone] Aug, [place] [id number] [place] [address] Aug, Pulmonary emphysema, unspecified emphysema type J43.9 ; Elevated hemoglobin A1c R73.09 ; Gastroesophageal reflux disease with esophagitis K21.0 ; Obesity (BMI 30.0-34.9) E66.9 ; Elevated LDL cholesterol level E78.00 ; Low serum HDL R74.8 and Elevated fasting glucose R73.01 [place] [address] [place] [address] Jul, Pulmonary emphysema, unspecified emphysema type J43.9 [place] [address] [place] [address] Jul, [place] [id number] [place] [address] Jul, Encounter to establish care Z76.89 ; History of coronary artery disease Z86.79 ; Pulmonary emphysema, unspecified emphysema type J43.9 ; 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 ; Stable angina pectoris I20.8 ; Gastroesophageal reflux disease with esophagitis K21.0 ; Encounter for immunization Z23 ; Dental caries K02.9 ; Obesity (BMI 30.0-34.9) E66.9 and Irregular heart rhythm I49.9 [facility] [address] [facility] [id number] [place] [address] 14 Jul, 2016 Dental examination Z01.20 [facility] [address] [facility] [id number] [address] 14 Jul, 2016 Encounter to establish care [...] SOCIAL HISTORY Never Assessed REASON FOR VISIT TE 1HR PER DDS NEARING PLAN OF CARE Activity Details Follow Up prn Reason:TE UL VITAL SIGNS Blood pressure systolic 148 mmHg 2017-10-16 Blood pressure diastolic 82 mmHg 2017-10-16 MEDICATIONS Medication Instructions Dosage Frequency Start Date End Date Duration Status Advair Diskus 250-50 MCG/DOSE Inhalation Twice a day 1 puff 12h Jul, Active Plavix 75 MG Orally Once a day 1 tablet 24h Active Nitrostat 0.4 MG Sublingual prn Active Protonix 20 MG TAKE ONE TABLET BY MOUTH ONCE DAILY Active Proventil HFA 108 (90 Base) MCG/ACT Inhalation every 4 hrs 2 puffs as needed 4h 12 months Active Atorvastatin Calcium 10 mg Orally Once a day 1 tablet 24h 24 Jul, 2016 Active MetFORMIN HCl ER 500 MG TAKE ONE TABLET BY MOUTH ONCE DAILY WITH EVENING MEAL Active Albuterol Sulfate (2.5 MG/3ML) 0.083% Inhalation Three times a day 3 ml 8h Active Lisinopril 2.5 MG TAKE ONE TABLET BY MOUTH ONCE DAILY Active Ranexa 500 MG Orally Twice a day 1 tablet 12h Active Imdur 120 MG Orally Once a day 1 tablet 24h Active Coreg 3.125 MG Orally 2 times a day 1 tablet 12h Active Aspirin 325 MG Orally Once a day 1 tablet 24h Active RESULTS No Results PROCEDURES Procedure Date Ordered Result Body Site EXTRAC ERUPTED TOOTH/EXPOSED ROOT October 16, 2017 EXTRAC ERUPTED TOOTH/EXPOSED ROOT October 16, 2017 INTRAORL-PERIAPICAL 1 FILM 11593 October 16, 2017 INTRAORL-PERIAPICAL EA ADD FILM October 16, 2017 INTRAORL-PERIAPICAL EA ADD FILM October 16, 2017 INTRAORL-PERIAPICAL EA ADD FILM October 16, 2017 INTRAORL-PERIAPICAL EA ADD FILM October 16, 2017 INTRAORL-PERIAPICAL EA ADD FILM October 16, 2017 INTRAORL-PERIAPICAL EA ADD FILM October 16, 2017 INTRAORL-PERIAPICAL EA ADD FILM October 16, 2017 INTRAORL-PERIAPICAL EA ADD FILM October 16, 2017 INSTRUCTIONS MEDICATIONS ADMINISTERED No Known Medications [...]
--- OUTSIDE RECORDS SUMMARY | 2019-01-15 00:50 | XMS REPORT ---
Author Author WILKINSWILLIAM Roberts Organization [facility] Address [address] [place] [address] Care Team Providers Care General Store Manager Name Role Phone WILLIAM WILKINS Unavailable PROBLEMS Type Condition ICD9-CM Code OYE81-SD Code Onset Dates Condition Status SNOMED Code Problem Dental caries K02.9 Active 00248943 Problem Gastroesophageal reflux disease with esophagitis K21.0 Active 643815020 Problem Irregular heart rhythm I49.9 Active 789803736 Problem Elevated LDL cholesterol level E78.00 Active 529881366 Problem Low serum HDL R74.8 Active 248589509 Problem Stable angina pectoris I20.8 Active 122457545 Problem Obesity (BMI 30.0-34.9) E66.9 Active 626605291783082 Problem Moderate episode of recurrent major depressive disorder F33.1 Active 389784742 Problem Periodontal disease K05.6 Active 6505895 Problem Coronary artery disease involving timbi-sha shoshone coronary artery of timbi-sha shoshone heart without angina pectoris I25.10 Active 1676111827922 Problem Pulmonary emphysema, unspecified emphysema type J43.9 Active 50813689 Problem Dental caries extending into dentine K02.62 Active 855966403 Problem Essential hypertension I10 Active 75350072 ALLERGIES No Known Allergies ENCOUNTERS Encounter Location Date Diagnosis [facility] [address], [place] [address] Nov, Moderate episode of recurrent major depressive disorder F33.1 and Pulmonary emphysema, unspecified emphysema type J43.9 [facility] [address] [place] [address] October, Moderate episode of recurrent major depressive disorder F33.1 [facility] [address] [id number] [id number] October, Dental caries K02.9 [facility] [address] [place] [address] Sep, Coronary artery disease involving timbi-sha shoshone coronary artery of timbi-sha shoshone heart without angina pectoris I25.10 ; Essential hypertension I10 ; Prediabetes R73.03 ; Gastroesophageal reflux disease with esophagitis K21.0 ; Elevated LDL cholesterol level E78.00 ; Dental caries K02.9 ; Low serum HDL R74.8 ; Pulmonary emphysema, unspecified emphysema type J43.9 ; Stable angina pectoris I20.8 ; Irregular heart rhythm I49.9 and Obesity (BMI 30.0-34.9) E66.9 [place] [id number] [place] [address] Sep, Coronary artery disease involving timbi-sha shoshone coronary artery of timbi-sha shoshone heart without angina pectoris I25.10 ; Gastroesophageal reflux disease with esophagitis K21.0 ; Essential hypertension I10 ; Prediabetes R73.03 ; Elevated LDL cholesterol level E78.00 ; Low serum HDL R74.8 ; Pulmonary emphysema, unspecified emphysema type J43.9 ; Stable angina pectoris I20.8 ; Irregular heart rhythm I49.9 ; Obesity (BMI 30.0-34.9) E66.9 and Dental caries K02.9 [place] [id number] [place] [address] Sep, Dental examination Z01.20 ; Periodontal disease K05.6 and Dental caries extending into dentine K02.62 [place] [address] [place] [address] Aug, Pulmonary emphysema, unspecified emphysema type J43.9 [place] [address] [place] [address] May, Coronary artery disease involving timbi-sha shoshone coronary artery of timbi-sha shoshone heart without angina pectoris I25.10 ; Pulmonary emphysema, unspecified emphysema type J43.9 ; Elevated fasting glucose R73.01 ; Elevated LDL cholesterol level E78.00 ; Obesity (BMI 30.0-34.9) E66.9 and Gastroesophageal reflux disease with esophagitis K21.0 [place] [address] [place] [address] Apr, [facility] [id number] [id number] Jan, Dental examination Z01.20 [place] [address] [address] Jan, [place] [address] [place] [address] Jan, Pulmonary emphysema, unspecified emphysema type J43.9 ; Gastroesophageal reflux disease with esophagitis K21.0 ; Obesity (BMI 30.0-34.9) E66.9 ; Irregular heart rhythm I49.9 ; History of coronary artery disease Z86.79 and Stable angina pectoris I20.8 [place] [id number] [place] [address] Jan, Dental examination Z01.20 and Dental caries K02.9 [place] [address] [place] [address] Aug, [place] [address] [place] [address] Aug, Pulmonary emphysema, unspecified emphysema type J43.9 ; Elevated hemoglobin A1c R73.09 ; Gastroesophageal reflux disease with esophagitis K21.0 ; Obesity (BMI 30.0-34.9) E66.9 ; Elevated LDL cholesterol level E78.00 ; Low serum HDL R74.8 and Elevated fasting glucose R73.01 [place] [address] [address] Jul, Pulmonary emphysema, unspecified emphysema type J43.9 [place] [address] [place] [address] Jul, [place] [address] [place] [address] Jul, Encounter to establish care Z76.89 ; [...] rhythm I49.9 [facility] [address] [facility] [id number] [place] [address] 14 Jul, [address] [facility] [address] [facility] [id number] [address] 14 Jul, 2016 Encounter to establish care [...] SOCIAL HISTORY Never Assessed REASON FOR VISIT Depression-adriana PEREZ PLAN OF CARE Activity Details Follow Up 4 Weeks Reason:depression f/u VITAL SIGNS Height 68 in 2017-10-21 Weight 207 lbs 2017-10-21 Temperature 98.3 degrees Fahrenheit 2017-10-21 Heart Rate 80 bpm 2017-10-21 Respiratory Rate 20 2017-10-21 BMI 31.47 kg/m2 2017-10-21 Blood pressure systolic 122 mmHg 2017-10-21 Blood pressure diastolic 78 mmHg 2017-10-21 MEDICATIONS Medication Instructions Dosage Frequency Start Date End Date Duration Status Ranexa 500 MG Orally Twice a day 1 tablet 12h Active Plavix 75 MG Orally Once a day 1 tablet 24h Active Aspirin 325 MG Orally Once a day 1 tablet 24h Active Coreg 3.125 MG Orally 2 times a day 1 tablet 12h Active MetFORMIN HCl ER 500 MG TAKE ONE TABLET BY MOUTH ONCE DAILY WITH EVENING MEAL Active Advair Diskus 250-50 MCG/DOSE Inhalation Twice a day 1 puff 12h 14 Jul, 2016 Active Lisinopril 2.5 MG TAKE ONE TABLET BY MOUTH ONCE DAILY Active Protonix 20 MG TAKE ONE TABLET BY MOUTH ONCE DAILY Active Imdur 120 MG Orally Once a day 1 tablet 24h Active Nitrostat 0.4 MG Sublingual prn Active Atorvastatin Calcium 10 mg Orally Once a day 1 tablet 24h 24 Jul, 2016 Active Proventil HFA 108 (90 Base) MCG/ACT Inhalation every 4 hrs 2 puffs as needed 4h 12 months Active Albuterol Sulfate (2.5 MG/3ML) 0.083% Inhalation Three times a day 3 ml 8h Active Fluoxetine 20 mg Orally Once a day 1 capsule in the morning 24h October, 30 day(s) Active RESULTS No Results PROCEDURES Procedure Date Ordered Result Body Site [facility] VISIT ESTABLISHED PATIENT October 21, 2017 INSTRUCTIONS MEDICATIONS ADMINISTERED No Known Medications [...]
--- OUTSIDE RECORDS SUMMARY | 2019-01-15 00:50 | XMS REPORT ---
Author Author SOFÍA KELSEY [facility] Address [address] [place] [address] Care Team Providers Care Rotary Shear Worker Helper Name Role Phone KELSEY SOFÍA Unavailable PROBLEMS Type Condition ICD9-CM Code LLE15-ZG Code Onset Dates Condition Status SNOMED Code Problem Dental caries K02.9 Active 66567681 Problem Gastroesophageal reflux disease with esophagitis K21.0 Active 673384745 Problem Irregular heart rhythm I49.9 Active 405054163 Problem Elevated LDL cholesterol level E78.00 Active 580842783 Problem Low serum HDL R74.8 Active 561597773 Problem Stable angina pectoris I20.8 Active 539331648 Problem Obesity (BMI 30.0-34.9) E66.9 Active 092851637336643 Problem Moderate episode of recurrent major depressive disorder F33.1 Active 996461917 Problem Periodontal disease K05.6 Active 0931618 Problem Coronary artery disease involving galena coronary artery of galena heart without angina pectoris I25.10 Active 9546556957139 Problem Pulmonary emphysema, unspecified emphysema type J43.9 Active 37939090 Problem Dental caries extending into dentine K02.62 Active 621977631 Problem Essential hypertension I10 Active 60667541 ALLERGIES No Known Allergies ENCOUNTERS Encounter Location Date Diagnosis [facility] [address], [place] [address] Nov, Moderate episode of recurrent major depressive disorder F33.1 and Pulmonary emphysema, unspecified emphysema type J43.9 [facility] [address], [place] [address] October, Moderate episode of recurrent major depressive disorder F33.1 [facility] [id number] [id number] October, Dental caries K02.9 [facility] [address], [place] [address] Sep, Coronary artery disease involving galena coronary artery of galena heart without angina pectoris I25.10 ; Essential hypertension I10 ; Prediabetes R73.03 ; Gastroesophageal reflux disease with esophagitis K21.0 ; Elevated LDL cholesterol level E78.00 ; Dental caries K02.9 ; Low serum HDL R74.8 ; Pulmonary emphysema, unspecified emphysema type J43.9 ; Stable angina pectoris I20.8 ; Irregular heart rhythm I49.9 and Obesity (BMI 30.0-34.9) E66.9 [place] [address] [place] [address] Sep, Coronary artery disease involving galena coronary artery of galena heart without angina pectoris I25.10 ; Gastroesophageal reflux disease with esophagitis K21.0 ; Essential hypertension I10 ; Prediabetes R73.03 ; Elevated LDL cholesterol level E78.00 ; Low serum HDL R74.8 ; Pulmonary emphysema, unspecified emphysema type J43.9 ; Stable angina pectoris I20.8 ; Irregular heart rhythm I49.9 ; Obesity (BMI 30.0-34.9) E66.9 and Dental caries K02.9 [place] [id number] [place] [address] Sep, Dental examination Z01.20 ; Periodontal disease K05.6 and Dental caries extending into dentine K02.62 [place] [id number] [place] [address] Aug, Pulmonary emphysema, unspecified emphysema type J43.9 [place] [id number] [place] [address] May, Coronary artery disease involving galena coronary artery of galena heart without angina pectoris I25.10 ; Pulmonary emphysema, unspecified emphysema type J43.9 ; Elevated fasting glucose R73.01 ; Elevated LDL cholesterol level E78.00 ; Obesity (BMI 30.0-34.9) E66.9 and Gastroesophageal reflux disease with esophagitis K21.0 [place] [id number] [place] [address] Apr, [facility] [id number] [id number] Jan, Dental examination Z01.20 [place] [address] [place] [address] Jan, [place] [id number] [place] [address] Jan, Pulmonary emphysema, unspecified emphysema type J43.9 ; Gastroesophageal reflux disease with esophagitis K21.0 ; Obesity (BMI 30.0-34.9) E66.9 ; Irregular heart rhythm I49.9 ; History of coronary artery disease Z86.79 and Stable angina pectoris I20.8 [place] [id number] [place] [address] Jan, Dental examination Z01.20 and Dental caries K02.9 [place] [id number] [place] [address] Aug, [place] [id number] [place] [address] Aug, Pulmonary emphysema, unspecified emphysema type J43.9 ; Elevated hemoglobin A1c R73.09 ; Gastroesophageal reflux disease with esophagitis K21.0 ; Obesity (BMI 30.0-34.9) E66.9 ; Elevated LDL cholesterol level E78.00 ; Low serum HDL R74.8 and Elevated fasting glucose R73.01 [place] [address] [place] [address] Jul, Pulmonary emphysema, unspecified emphysema type J43.9 [place] [address] [place] [address] Jul, [place] [address] [place] [address] Jul, Encounter to establish care Z76.89 ; History of coronary artery disease Z86.79 ; Pulmonary emphysema, unspecified emphysema type J43.9 ; 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 Hitchcock. PLAN OF CARE VITAL SIGNS MEDICATIONS Medication Instructions Dosage Frequency Start Date End Date Duration Status Protonix 20 MG TAKE ONE TABLET BY MOUTH ONCE DAILY 90 Active Atorvastatin Calcium 10 mg Orally Once a day 1 tablet 24h 24 Jul, 2016 90 days Active Albuterol Sulfate (2.5 MG/3ML) 0.083% Inhalation Three times a day 3 ml 8h 12 months Active MetFORMIN HCl ER 500 MG TAKE ONE TABLET BY MOUTH ONCE DAILY WITH EVENING MEAL 90 Active Advair Diskus 250-50 MCG/DOSE Inhalation Twice a day 1 puff 12h 14 Jul, 2016 12 months Active Imdur 120 MG Orally Once a day 1 tablet 24h 90 days Active Aspirin 325 MG Orally Once a day 1 tablet 24h 90 days Active Symbicort 160-4.5 MCG/ACT Inhalation Twice a day 2 puffs 12h Not-Taking Lisinopril 2.5 MG TAKE ONE TABLET BY MOUTH ONCE DAILY 90 Active Coreg 3.125 MG Orally 2 times a day 1 tablet 12h 90 days Active Plavix 75 MG Orally Once a day 1 tablet 24h 90 days Active Proventil HFA 108 (90 Base) MCG/ACT Inhalation every 4 hrs 2 puffs as needed 4h 12 months Active Ranexa 500 MG Orally Twice a day 1 tablet 12h 90 days Active Nitrostat 0.4 MG Sublingual prn Active RESULTS No Results PROCEDURES Procedure Date Ordered Result Body Site SCREENING OF A PATIENT September 11, 2017 Billing Notes on claim September 11, 2017 INSTRUCTIONS MEDICATIONS ADMINISTERED No [...]
--- OUTSIDE RECORDS SUMMARY | 2019-01-15 00:51 | XMS REPORT ---
Author Author WILLIAM WILKINS Organization [facility] Address [address] [place] [address] Care Team Providers Care Emergency Department Technician Name Role Phone WILLIAM WILKINS Unavailable PROBLEMS Type Condition ICD9-CM Code [id number] Code Onset Dates Condition Status SNOMED Code Problem Obesity (BMI 30.0-34.9) E66.9 Active [id number] Problem Irregular heart rhythm I49.9 Active 375658612 Problem Dental caries K02.9 Active 36180272 Problem Elevated LDL cholesterol level E78.00 Active 051175637 Problem Low serum HDL R74.8 Active 121693292 Problem Stable angina pectoris I20.8 Active 601585066 Problem Periodontal disease K05.6 Active 9645197 Problem Dental caries extending into dentine K02.62 Active 275379153 Problem Pulmonary emphysema, unspecified emphysema type J43.9 Active 97220813 Problem Gastroesophageal reflux disease with esophagitis K21.0 Active 792333591 Problem Essential hypertension I10 Active 97104367 Problem Coronary artery disease involving [place] coronary artery of [place] heart without angina pectoris I25.10 Active [id number] ALLERGIES No Known Allergies ENCOUNTERS Encounter Location Date Diagnosis [facility] [address] [facility] [id number] [id number] October, [facility] [address] [id number] [address] Sep, Coronary artery disease involving [place] coronary artery of [place] heart without angina pectoris I25.10 ; Essential hypertension I10 ; Prediabetes R73.03 ; Gastroesophageal reflux disease with esophagitis K21.0 ; Elevated LDL cholesterol level E78.00 ; Dental caries K02.9 ; Low serum HDL R74.8 ; Pulmonary emphysema, unspecified emphysema type J43.9 ; Stable angina pectoris I20.8 ; Irregular heart rhythm I49.9 and Obesity (BMI 30.0-34.9) E66.9 [place] [address] [place] [address] Sep, Coronary artery disease involving [place] coronary artery of [place] heart without angina pectoris I25.10 ; Gastroesophageal reflux disease with esophagitis K21.0 ; Essential hypertension I10 ; Prediabetes R73.03 ; Elevated LDL cholesterol level E78.00 ; Low serum HDL R74.8 ; Pulmonary emphysema, unspecified emphysema type J43.9 ; Stable angina pectoris I20.8 ; Irregular heart rhythm I49.9 ; Obesity (BMI 30.0-34.9) E66.9 and Dental caries K02.9 [place] [id number] [place] [address] Sep, Dental examination Z01.20 ; Periodontal disease K05.6 and Dental caries extending into dentine K02.62 [place] [id number] [place] [address] Aug, Pulmonary emphysema, unspecified emphysema type J43.9 [place] [id number] [place] [address] May, Coronary artery disease involving [place] coronary artery of [place] heart without angina pectoris I25.10 ; Pulmonary emphysema, unspecified emphysema type J43.9 ; Elevated fasting glucose R73.01 ; Elevated LDL cholesterol level E78.00 ; Obesity (BMI 30.0-34.9) E66.9 and Gastroesophageal reflux disease with esophagitis K21.0 [place] [address] [place] [phone] Apr, [facility] [address] [place] [id number] Jan, Dental examination Z01.20 [place] [id number] [place] [phone] Jan, [place] [id number] [place] [address] Jan, Pulmonary emphysema, unspecified emphysema type J43.9 ; Gastroesophageal reflux disease with esophagitis K21.0 ; Obesity (BMI 30.0-34.9) E66.9 ; Irregular heart rhythm I49.9 ; History of coronary artery disease Z86.79 and Stable angina pectoris I20.8 [place] [id number] [place] [address] 15 Jan, 2017 Dental examination Z01.20 and Dental caries K02.[address] [address] Aug, [address] [address] Aug, Pulmonary emphysema, unspecified emphysema type J43.9 ; Elevated hemoglobin A1c R73.09 ; Gastroesophageal reflux disease with esophagitis K21.0 ; Obesity (BMI 30.0-34.9) E66.9 ; Elevated LDL cholesterol level E78.00 ; Low serum HDL R74.8 and Elevated fasting glucose R73.[address] [address] Jul, Pulmonary emphysema, unspecified emphysema type J43.[address] [address] Jul, [address] [address] Jul, Encounter to establish care Z76.89 ; History of coronary artery disease Z86.79 ; Pulmonary emphysema, unspecified emphysema type J43.9 ; 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 ; Stable angina pectoris I20.8 ; Gastroesophageal reflux disease with esophagitis K21.0 ; Encounter for immunization Z23 ; Dental caries K02.9 ; Obesity (BMI 30.0-34.9) E66.9 and Irregular heart rhythm I49.9 [place] [id number] [place] [phone] 14 Jul, 2016 Dental examination Z01.[address] [address] Jul, Encounter to establish care Z76.89 ; [...] SOCIAL HISTORY Never Assessed REASON FOR VISIT HTN fu -- jose del castillo PLAN OF CARE Activity Details Follow Up 3 Months Reason:CHM VITAL SIGNS Height 68 in 2017-01-21 Weight 221.7 lbs 2017-01-21 Temperature 97.0 degrees Fahrenheit 2017-01-21 Heart Rate 76 bpm 2017-01-21 Respiratory Rate 24 2017-01-21 BMI 33.71 kg/m2 2017-01-21 Blood pressure systolic 140 mmHg 2017-01-21 Blood pressure diastolic 82 mmHg 2017-01-21 MEDICATIONS Medication Instructions Dosage Frequency Start Date End Date Duration Status Protonix 20 mg Orally Once a day 1 tablets 24h Jul, Active Coreg 3.125 MG Orally 2 times a day 12h Active Nitrostat 0.4 MG Sublingual prn Active Plavix 75 MG Orally Once a day 1 tablet 24h Active Ranexa 500 MG Orally Twice a day 1 tablet 12h Active MetFORMIN HCl ER 500 mg Orally Once a day 1 tablet with evening meal 24h Aug, 90 days Active Aspirin 325 MG Orally Once a day 1 tablet 24h Active PredniSONE 20 mg Orally Once a day 1 tablet 24h Jan, Jan, 05 days Active Advair Diskus 250-50 MCG/DOSE Inhalation Twice a day 1 puff 12h Jul, Active Albuterol Sulfate (2.5 MG/3ML) 0.083% Inhalation Three times a day 3 ml 8h Active Atorvastatin Calcium 10 mg Orally Once a day 1 tablet 24h Jul, 90 days Active Proventil HFA 108 (90 Base) MCG/ACT Inhalation every 4 hrs 2 puffs as needed 4h Active Imdur 120 MG Orally Once a day 1 tablet 24h Active Lisinopril 2.5 MG Orally Once a day 1 tablet 24h 90 Active RESULTS No Results PROCEDURES Procedure Date Ordered Result Body Site [facility] VISIT ESTABLISHED PATIENT Jan 21, 2017 INSTRUCTIONS MEDICATIONS ADMINISTERED No Known Medications MEDICAL (GENERAL) HISTORY Type Description Date Medical History coronary artery disease Medical History chronic obstructive pulmonary disease (COPD) Medical History Cardiac stenting done by Dr. Rebollar: last visit in April Medical History CABG done about 6-[address] Lucio Medical History History of coronary artery disease Medical History History of coronary artery bypass graft Surgical History coronary artery bypass graft 2010 Surgical History rotator cuff tear repair, left Hospitalization History pneumonia
--- OUTSIDE RECORDS SUMMARY | 2019-01-15 00:51 | XMS REPORT ---
Author Author WILLIAM WILKINS Organization [facility] Address [address] [place] [address] Care Team Providers Care Burn Center Nurse Name Role Phone WILKINSCAITLIN RobertsELE Unavailable PROBLEMS Type Condition ICD9-CM Code [id number] Code Onset Dates Condition Status SNOMED Code Problem Encounter to establish care Z76.89 Active 445860009 Problem Irregular heart rhythm I49.9 Active 723609248 Problem History of coronary artery disease Z86.79 Active 396797471 Problem Encounter for immunization Z23 Active 219997587 Problem Dental caries K02.9 Active 03507399 Problem Pulmonary emphysema, unspecified emphysema type J43.9 Active 21180006 Problem Gastroesophageal reflux disease with esophagitis K21.0 Active 535032709 Problem Obesity (BMI 30.0-34.9) E66.9 Active 903266888516522 Problem 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 Active 048866915 Problem Elevated hemoglobin A1c R73.09 Active 318968566 Problem Elevated LDL cholesterol level E78.00 Active 734101777 Problem Low serum HDL R74.8 Active 094941413 Problem Elevated fasting glucose R73.01 Active 137319483 Problem Stable angina pectoris I20.8 Active 012280965 ALLERGIES No Known Allergies SOCIAL HISTORY Never Assessed PLAN OF CARE Activity Details Follow Up 4 Weeks Reason:CHM/labs VITAL SIGNS Height 68 in 2016-07-23 Weight 213 lbs 2016-07-23 Temperature 98.5 degrees Fahrenheit 2016-07-23 Heart Rate 62 bpm 2016-07-23 Respiratory Rate 16 2016-07-23 BMI 32.38 kg/m2 2016-07-23 Blood pressure systolic 136 mmHg 2016-07-23 Blood pressure diastolic 86 mmHg 2016-07-23 MEDICATIONS Medication Instructions Dosage Frequency Start Date End Date Duration Status Plavix 75 MG Orally Once a day 1 tablet 24h Active Aspirin 325 MG Orally Once a day 1 tablet 24h Active Ranexa 500 MG Orally Twice a day 1 tablet 12h Active Nitrostat 0.4 MG Sublingual prn Active Symbicort 160-4.5 MCG/ACT Inhalation Twice a day 2 puffs 12h Active Coreg 3.125 MG Orally 2 times a day 12h Active Protonix 20 mg Orally Once a day 1 tablets 24h Jul, 90 days Active Advair Diskus 250-50 MCG/DOSE Inhalation Twice a day 1 puff 12h Jul, 12 months Active Imdur 120 MG Orally Once a day 1 tablet 24h Active Albuterol Sulfate (2.5 MG/3ML) 0.083% Inhalation Three times a day 3 ml 8h Active Proventil HFA 108 (90 Base) MCG/ACT Inhalation every 4 hrs 2 puffs as needed 4h Active RESULTS No Results PROCEDURES Procedure Date Ordered Result Body Site EKG, TRACING (IN-HOUSE) 2016-07-23 N/A FLUARIX QUAD P-FREE 3 AND UP .50 2015Jul 23, 2016 ELECTROCARDIOGRAM, TRACING Jul 23, 2016 SINGLE IMMUNIZATION ADMIN Jul 23, 2016 IMMUNIZATIONS Vaccine Route Administration Date Status FLUARIX QUAD P-FREE 3 AND UP .50 2015 IM Intramuscular Jul 23, 2016 Administered MEDICAL (GENERAL) HISTORY Type Description Date Medical [...]
--- OUTSIDE RECORDS SUMMARY | 2019-01-15 00:51 | XMS REPORT ---
Author Author WILLIAM WILKINS Organization [facility] Address [address] [place] [address] Care Team Providers Care Golf Course Patroller Name Role Phone WILLIAM WILKINS Unavailable PROBLEMS Type Condition ICD9-CM Code [id number] Code Onset Dates Condition Status SNOMED Code Problem Obesity (BMI 30.0-34.9) E66.9 Active 629605388563819 Problem Irregular heart rhythm I49.9 Active 677686643 Problem Dental caries K02.9 Active 28762909 Problem Elevated LDL cholesterol level E78.00 Active 366516706 Problem Low serum HDL R74.8 Active 457436394 Problem Stable angina pectoris I20.8 Active 282443891 Problem Periodontal disease K05.6 Active 2728532 Problem Dental caries extending into dentine K02.62 Active 106713169 Problem Pulmonary emphysema, unspecified emphysema type J43.9 Active 86510590 Problem Gastroesophageal reflux disease with esophagitis K21.0 Active 451812117 Problem Essential hypertension I10 Active 44406615 Problem Coronary artery disease involving [place] coronary artery of [place] heart without angina pectoris I25.10 Active 1909532694088 ALLERGIES No Information ENCOUNTERS Encounter Location Date Diagnosis [facility] [address] [facility] [id number] [id number] October, [facility] [address] [facility] [id number] [address] Sep, Coronary artery disease involving [place] coronary artery of [place] heart without angina pectoris I25.10 ; Essential hypertension I10 ; Prediabetes R73.03 ; Gastroesophageal reflux disease with esophagitis K21.0 ; Elevated LDL cholesterol level E78.00 ; Dental caries K02.9 ; Low serum HDL R74.8 ; Pulmonary emphysema, unspecified emphysema type J43.9 ; Stable angina pectoris I20.8 ; Irregular heart rhythm I49.9 and Obesity (BMI 30.0-34.9) E66.9 [place] [address] [place] [address] Sep, Coronary artery disease involving [place] coronary artery of [place] heart without angina pectoris I25.10 ; Gastroesophageal reflux disease with esophagitis K21.0 ; Essential hypertension I10 ; Prediabetes R73.03 ; Elevated LDL cholesterol level E78.00 ; Low serum HDL R74.8 ; Pulmonary emphysema, unspecified emphysema type J43.9 ; Stable angina pectoris I20.8 ; Irregular heart rhythm I49.9 ; Obesity (BMI 30.0-34.9) E66.9 and Dental caries K02.9 [place] [id number] [place] [phone] Sep, Dental examination Z01.20 ; Periodontal disease K05.6 and Dental caries extending into dentine K02.62 [place] [id number] [place] [phone] Aug, Pulmonary emphysema, unspecified emphysema type J43.9 [place] [id number] [place] [address] May, Coronary artery disease involving [place] coronary artery of [place] heart without angina pectoris I25.10 ; Pulmonary emphysema, unspecified emphysema type J43.9 ; Elevated fasting glucose R73.01 ; Elevated LDL cholesterol level E78.00 ; Obesity (BMI 30.0-34.9) E66.9 and Gastroesophageal reflux disease with esophagitis K21.0 [place] [address] [place] [address] Apr, [facility] [address] [place] [id number] Jan, Dental examination Z01.20 [place] [id number] [place] [address] Jan, [place] [id number] [place] [address] Jan, Pulmonary emphysema, unspecified emphysema type J43.9 ; Gastroesophageal reflux disease with esophagitis K21.0 ; Obesity (BMI 30.0-34.9) E66.9 ; Irregular heart rhythm I49.9 ; History of coronary artery disease Z86.79 and Stable angina pectoris I20.8 [place] [id number] [place] [address] Jan, Dental examination Z01.20 and Dental caries K02.[address] [address] Aug, [address] [address] Aug, Pulmonary emphysema, unspecified emphysema type J43.9 ; Elevated hemoglobin A1c R73.09 ; Gastroesophageal reflux disease with esophagitis K21.0 ; Obesity (BMI 30.0-34.9) E66.9 ; Elevated LDL cholesterol level E78.00 ; Low serum HDL R74.8 and Elevated fasting glucose R73.[address] [address] Jul, Pulmonary emphysema, unspecified emphysema type J43.[address] [address] Jul, [address] [address] Jul, Encounter to establish care Z76.89 ; History of coronary artery disease Z86.79 ; Pulmonary emphysema, unspecified emphysema type J43.9 ; 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 ; Stable angina pectoris I20.8 ; Gastroesophageal reflux disease with esophagitis K21.0 ; Encounter for immunization Z23 ; Dental caries K02.9 ; Obesity (BMI 30.0-34.9) E66.9 and Irregular heart rhythm I49.9 [place] [id number] [place] [address] 14 Jul, 2016 Dental examination Z01.[address] [address] 14 Jul, 2016 Encounter to establish care [...] SOCIAL HISTORY Never Assessed REASON FOR VISIT Medication question PLAN OF CARE VITAL SIGNS MEDICATIONS Unknown Medications RESULTS No Results PROCEDURES No Known procedures INSTRUCTIONS MEDICATIONS ADMINISTERED No Known Medications MEDICAL [...]
--- OUTSIDE RECORDS SUMMARY | 2019-01-15 00:51 | XMS REPORT ---
Author Author WILLIAM WILKINS Organization [facility] Address [address] [place] [address] Care Team Providers Care Special Education Teachers Name Role Phone WILLIAM WILKINS Unavailable PROBLEMS Type Condition ICD9-CM Code [id number] Code Onset Dates Condition Status SNOMED Code Problem Dental caries K02.9 Active 31767485 Problem Gastroesophageal reflux disease with esophagitis K21.0 Active 044491997 Problem Irregular heart rhythm I49.9 Active 773456966 Problem Elevated LDL cholesterol level E78.00 Active 602625105 Problem Low serum HDL R74.8 Active 961900185 Problem Stable angina pectoris I20.8 Active 107152373 Problem Obesity (BMI 30.0-34.9) E66.9 Active 334680994623777 Problem Moderate episode of recurrent major depressive disorder F33.1 Active 073516946 Problem Periodontal disease K05.6 Active 2170928 Problem Coronary artery disease involving [place] coronary artery of [place] heart without angina pectoris I25.10 Active 4446476895466 Problem Pulmonary emphysema, unspecified emphysema type J43.9 Active 62744023 Problem Dental caries extending into dentine K02.62 Active 341167098 Problem Essential hypertension I10 Active 83575726 ALLERGIES No Information ENCOUNTERS Encounter Location Date Diagnosis [facility] [address] [place] [address] Nov, Moderate episode of recurrent major depressive disorder F33.1 and Pulmonary emphysema, unspecified emphysema type J43.9 [facility] [address] [place] [address] October, Moderate episode of recurrent major depressive disorder F33.1 [facility] [address] [id number] [id number] October, Dental caries K02.9 [facility] [id number] [place] [address] Sep, Coronary artery disease involving [place] coronary artery of [place] heart without angina pectoris I25.10 ; Essential hypertension I10 ; Prediabetes R73.03 ; Gastroesophageal reflux disease with esophagitis K21.0 ; Elevated LDL cholesterol level E78.00 ; Dental caries K02.9 ; Low serum HDL R74.8 ; Pulmonary emphysema, unspecified emphysema type J43.9 ; Stable angina pectoris I20.8 ; Irregular heart rhythm I49.9 and Obesity (BMI 30.0-34.9) E66.9 [place] [address] [place] [address] Sep, Coronary artery disease involving [place] coronary artery of [place] heart without angina pectoris I25.10 ; Gastroesophageal reflux disease with esophagitis K21.0 ; Essential hypertension I10 ; Prediabetes R73.03 ; Elevated LDL cholesterol level E78.00 ; Low serum HDL R74.8 ; Pulmonary emphysema, unspecified emphysema type J43.9 ; Stable angina pectoris I20.8 ; Irregular heart rhythm I49.9 ; Obesity (BMI 30.0-34.9) E66.9 and Dental caries K02.9 [place] [address] [place] [address] Sep, Dental examination Z01.20 ; Periodontal disease K05.6 and Dental caries extending into dentine K02.62 [place] [address], [place] [address] Aug, Pulmonary emphysema, unspecified emphysema type J43.9 [place] [address] [place] [address] May, Coronary artery disease involving [place] coronary artery of [place] heart without angina pectoris I25.10 ; Pulmonary emphysema, unspecified emphysema type J43.9 ; Elevated fasting glucose R73.01 ; Elevated LDL cholesterol level E78.00 ; Obesity (BMI 30.0-34.9) E66.9 and Gastroesophageal reflux disease with esophagitis K21.0 [place] [id number] [place] [address] Apr, [facility] [address] [id number] [id number] Jan, Dental examination Z01.20 [place] [address] [place] [address] Jan, [place] [address] [place] [id number] [place] [address] Jan, Pulmonary emphysema, unspecified emphysema type J43.9 ; Gastroesophageal reflux disease with esophagitis K21.0 ; Obesity (BMI 30.0-34.9) E66.9 ; Irregular heart rhythm I49.9 ; History of coronary artery disease Z86.79 and Stable angina pectoris I20.8 [place] [address] [id number] [place] [address] Jan, Dental examination Z01.20 and Dental caries K02.9 [place] [address] [place] [address] Aug, [place] [id number] [place] [address] Aug, Pulmonary emphysema, unspecified emphysema type J43.9 ; Elevated hemoglobin A1c R73.09 ; Gastroesophageal reflux disease with esophagitis K21.0 ; Obesity (BMI 30.0-34.9) E66.9 ; Elevated LDL cholesterol level E78.00 ; Low serum HDL R74.8 and Elevated fasting glucose R73.01 [place] [address], [place] [address] Jul, Pulmonary emphysema, unspecified emphysema type J43.9 [place] [address] [address] Jul, [place] [address] [place] [address] Jul, Encounter to establish care Z76.89 ; History of coronary artery disease Z86.79 ; Pulmonary emphysema, unspecified emphysema type J43.9 ; 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 ; Stable angina pectoris I20.8 ; Gastroesophageal reflux disease with esophagitis K21.0 ; Encounter for immunization Z23 ; Dental caries K02.9 ; Obesity (BMI 30.0-34.9) E66.9 and Irregular heart rhythm I49.9 [facility] [address] [facility] [id number] [address] 14 Jul, 2016 Dental examination Z01.20 [facility] [address] [facility] [id number] [address] 14 Jul, 2016 Encounter to establish care [...] SOCIAL HISTORY Never Assessed REASON FOR VISIT PLAN OF CARE VITAL SIGNS MEDICATIONS Medication Instructions Dosage Frequency Start Date End Date Duration Status Advair Diskus 250-50 MCG/DOSE Inhalation Twice a day 1 puff 12h 14 Jul, 2016 12 months Active RESULTS No Results PROCEDURES No Known procedures [...]
--- OUTSIDE RECORDS SUMMARY | 2019-01-15 00:51 | XMS REPORT ---
Author Author WILKINSWILLIAM Roberts Organization [facility] [place] Address [address] [place] [address] Care Team Providers Care Granite Fabricator Name Role Phone WILLIAM WILKINS Unavailable PROBLEMS Type Condition ICD9-CM Code QOO31-HK Code Onset Dates Condition Status SNOMED Code Problem Dental caries K02.9 Active 35680460 Problem Gastroesophageal reflux disease with esophagitis K21.0 Active 612431921 Problem Irregular heart rhythm I49.9 Active 685733834 Problem Elevated LDL cholesterol level E78.00 Active 407252551 Problem Low serum HDL R74.8 Active 963853305 Problem Stable angina pectoris I20.8 Active 367950716 Problem Obesity (BMI 30.0-34.9) E66.9 Active 562944526445826 Problem Moderate episode of recurrent major depressive disorder F33.1 Active 194993659 Problem Periodontal disease K05.6 Active 6442843 Problem Coronary artery disease involving [place] coronary artery of [place] heart without angina pectoris I25.10 Active 8956138372476 Problem Pulmonary emphysema, unspecified emphysema type J43.9 Active 84988783 Problem Dental caries extending into dentine K02.62 Active 171363890 Problem Essential hypertension I10 Active 12600397 ALLERGIES No Information ENCOUNTERS Encounter Location Date Diagnosis [facility] [place] [id number] [address] Nov, [facility] [place] [address] [address] October, Moderate episode of recurrent major depressive disorder F33.1 [facility] [address] [id number] [id number] October, Dental caries K02.9 [facility] [place] [id number] [address] Sep, Coronary artery disease involving [place] coronary artery of [place] heart without angina pectoris I25.10 ; Essential hypertension I10 ; Prediabetes R73.03 ; Gastroesophageal reflux disease with esophagitis K21.0 ; Elevated LDL cholesterol level E78.00 ; Dental caries K02.9 ; Low serum HDL R74.8 ; Pulmonary emphysema, unspecified emphysema type J43.9 ; Stable angina pectoris I20.8 ; Irregular heart rhythm I49.9 and Obesity (BMI 30.0-34.9) E66.9 [place] [address] [address] Sep, Coronary artery disease involving [place] coronary artery of [place] heart without angina pectoris I25.10 ; Gastroesophageal reflux disease with esophagitis K21.0 ; Essential hypertension I10 ; Prediabetes R73.03 ; Elevated LDL cholesterol level E78.00 ; Low serum HDL R74.8 ; Pulmonary emphysema, unspecified emphysema type J43.9 ; Stable angina pectoris I20.8 ; Irregular heart rhythm I49.9 ; Obesity (BMI 30.0-34.9) E66.9 and Dental caries K02.[address] [address] Sep, Dental examination Z01.20 ; Periodontal disease K05.6 and Dental caries extending into dentine K02.62 [place] [id number] [place] [address] Aug, Pulmonary emphysema, unspecified emphysema type J43.9 [place] [address] [address] May, Coronary artery disease involving [place] coronary artery of [place] heart without angina pectoris I25.10 ; Pulmonary emphysema, unspecified emphysema type J43.9 ; Elevated fasting glucose R73.01 ; Elevated LDL cholesterol level E78.00 ; Obesity (BMI 30.0-34.9) E66.9 and Gastroesophageal reflux disease with esophagitis K21.0 [place] [id number] [place] [address] Apr, [facility] [address] [id number] Jan, Dental examination Z01.20 [place] [id number] [place] [address] Jan, [place] [id number] [place] [address] Jan, Pulmonary emphysema, unspecified emphysema type J43.9 ; Gastroesophageal reflux disease with esophagitis K21.0 ; Obesity (BMI 30.0-34.9) E66.9 ; Irregular heart rhythm I49.9 ; History of coronary artery disease Z86.79 and Stable angina pectoris I20.8 [place] [id number] [place] [address] Jan, Dental examination Z01.20 and Dental caries K02.9 [place] [id number] [place] [address] Aug, [place] [id number] [place] [address] Aug, Pulmonary emphysema, unspecified emphysema type J43.9 ; Elevated hemoglobin A1c R73.09 ; Gastroesophageal reflux disease with esophagitis K21.0 ; Obesity (BMI 30.0-34.9) E66.9 ; Elevated LDL cholesterol level E78.00 ; Low serum HDL R74.8 and Elevated fasting glucose R73.01 [place] [address] [place] [address] Jul, Pulmonary emphysema, unspecified emphysema type J43.9 [place] [address] [place] [address] Jul, [place] [id number] [place] [address] Jul, Encounter to establish care Z76.89 ; History of coronary artery disease Z86.79 ; Pulmonary emphysema, unspecified emphysema type J43.9 ; 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 ; Stable angina pectoris I20.8 ; Gastroesophageal reflux disease with esophagitis K21.0 ; Encounter for immunization Z23 ; Dental caries K02.9 ; Obesity (BMI 30.0-34.9) E66.9 and Irregular heart rhythm I49.9 [facility] [place] [address] [facility] [id number] [place] [address] 14 Jul, 2016 Dental examination Z01.20 [facility] [place] [address] [facility] [id number] [place] [address] 14 Jul, 2016 Encounter to establish care [...] SOCIAL HISTORY Never Assessed REASON FOR VISIT needs appt PLAN OF CARE VITAL SIGNS MEDICATIONS Unknown [...]
--- OUTSIDE RECORDS SUMMARY | 2019-01-15 00:51 | XMS REPORT ---
Author Author BETSY BROWNLEE [facility] Address [address] [place] [address] Care Team Providers Care Camp Coordinator Name Role Phone BROWNLEELESLIA Unavailable PROBLEMS Type Condition ICD9-CM Code AQS03-OQ Code Onset Dates Condition Status SNOMED Code Problem Obesity (BMI 30.0-34.9) E66.9 Active [id number] Problem Irregular heart rhythm I49.9 Active 672843253 Problem Dental caries K02.9 Active 64492084 Problem Elevated LDL cholesterol level E78.00 Active 510975820 Problem Low serum HDL R74.8 Active 032633165 Problem Stable angina pectoris I20.8 Active 321682435 Problem Periodontal disease K05.6 Active 8790279 Problem Dental caries extending into dentine K02.62 Active 091092667 Problem Pulmonary emphysema, unspecified emphysema type J43.9 Active 31302511 Problem Gastroesophageal reflux disease with esophagitis K21.0 Active 597830315 Problem Essential hypertension I10 Active 02494668 Problem Coronary artery disease involving [place] coronary artery of [place] heart without angina pectoris I25.10 Active [id number] ALLERGIES No Information ENCOUNTERS Encounter Location Date Diagnosis [facility] [id number] [id number] October, [facility] [id number] [address] Sep, Coronary artery disease involving [place] coronary artery of [place] heart without angina pectoris I25.10 ; Essential hypertension I10 ; Prediabetes R73.03 ; Gastroesophageal reflux disease with esophagitis K21.0 ; Elevated LDL cholesterol level E78.00 ; Dental caries K02.9 ; Low serum HDL R74.8 ; Pulmonary emphysema, unspecified emphysema type J43.9 ; Stable angina pectoris I20.8 ; Irregular heart rhythm I49.9 and Obesity (BMI 30.0-34.9) E66.9 [place] [address] [place] [address] Sep, Coronary artery disease involving [place] coronary artery of [place] heart without angina pectoris I25.10 ; Gastroesophageal reflux disease with esophagitis K21.0 ; Essential hypertension I10 ; Prediabetes R73.03 ; Elevated LDL cholesterol level E78.00 ; Low serum HDL R74.8 ; Pulmonary emphysema, unspecified emphysema type J43.9 ; Stable angina pectoris I20.8 ; Irregular heart rhythm I49.9 ; Obesity (BMI 30.0-34.9) E66.9 and Dental caries K02.9 [place] [id number] [place] [address] Sep, Dental examination Z01.20 ; Periodontal disease K05.6 and Dental caries extending into dentine K02.62 [place] [id number] [place] [address] Aug, Pulmonary emphysema, unspecified emphysema type J43.9 [place] [id number] [place] [address] May, Coronary artery disease involving [place] coronary artery of [place] heart without angina pectoris I25.10 ; Pulmonary emphysema, unspecified emphysema type J43.9 ; Elevated fasting glucose R73.01 ; Elevated LDL cholesterol level E78.00 ; Obesity (BMI 30.0-34.9) E66.9 and Gastroesophageal reflux disease with esophagitis K21.0 [place] [address] [place] [address] Apr, [facility] [address] [place] [id number] Jan, Dental examination Z01.20 [place] [id number] [place] [address] Jan, [place] [id number] [place] [address] Jan, Pulmonary emphysema, unspecified emphysema type J43.9 ; Gastroesophageal reflux disease with esophagitis K21.0 ; Obesity (BMI 30.0-34.9) E66.9 ; Irregular heart rhythm I49.9 ; History of coronary artery disease Z86.79 and Stable angina pectoris I20.8 [place] [id number] [place] [address] Jan, Dental examination Z01.20 and Dental caries K02.[address] [address] Aug, [address] [address] Aug, Pulmonary emphysema, unspecified emphysema type J43.9 ; Elevated hemoglobin A1c R73.09 ; Gastroesophageal reflux disease with esophagitis K21.0 ; Obesity (BMI 30.0-34.9) E66.9 ; Elevated LDL cholesterol level E78.00 ; Low serum HDL R74.8 and Elevated fasting glucose R73.[address] [address] Jul, Pulmonary emphysema, unspecified emphysema type J43.[address] [address] Jul, [address] [address] Jul, Encounter to establish care Z76.89 ; History of coronary artery disease Z86.79 ; Pulmonary emphysema, unspecified emphysema type J43.9 ; 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 ; Stable angina pectoris I20.8 ; Gastroesophageal reflux disease with esophagitis K21.0 ; Encounter for immunization Z23 ; Dental caries K02.9 ; Obesity (BMI 30.0-34.9) E66.9 and Irregular heart rhythm I49.9 [place] [id number] [place] [address] 14 Jul, 2016 Dental examination Z01.[address] [address] 14 Jul, 2016 Encounter to establish care [...] SOCIAL HISTORY Never Assessed REASON FOR VISIT Dental Assessment PLAN OF CARE Activity Details Follow Up prn Reason:dental exam VITAL SIGNS MEDICATIONS Unknown Medications RESULTS No Results PROCEDURES Procedure Date Ordered Result Body Site SCREENING OF A PATIENT Jan 21, 2017 Billing Notes on claim Jan 21, 2017 INSTRUCTIONS MEDICATIONS ADMINISTERED No [...]
--- OUTSIDE RECORDS SUMMARY | 2019-01-15 00:51 | XMS REPORT ---
Author Author WILKINSCAITLINWILLIAM Organization [facility] [place] Address [address] [place] [address] Care Team Providers Care Clinical Data Manager Name Role Phone WILLIAM WILKINS Unavailable PROBLEMS Type Condition ICD9-CM Code [id number] Code Onset Dates Condition Status SNOMED Code Problem Encounter to establish care Z76.89 Active 010640053 Problem Irregular heart rhythm I49.9 Active 210079893 Problem History of coronary artery disease Z86.79 Active 204049640 Problem Encounter for immunization Z23 Active 987640384 Problem Dental caries K02.9 Active 47884283 Problem Pulmonary emphysema, unspecified emphysema type J43.9 Active 16705916 Problem Gastroesophageal reflux disease with esophagitis K21.0 Active 648737242 Problem Obesity (BMI 30.0-34.9) E66.9 Active 996744027308785 Problem 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 Active 416040520 Problem Elevated hemoglobin A1c R73.09 Active 381111878 Problem Elevated LDL cholesterol level E78.00 Active 065837513 Problem Low serum HDL R74.8 Active 025901345 Problem Elevated fasting glucose R73.01 Active 776809701 Problem Stable angina pectoris I20.8 Active 259441355 ALLERGIES No Information SOCIAL HISTORY Never Assessed PLAN OF CARE VITAL SIGNS MEDICATIONS Medication Instructions Dosage Frequency Start Date End Date Duration Status MetFORMIN HCl ER 750 MG Orally Once a day 1 tablet with evening meal 24h Jul, 30 day(s) Active Atorvastatin Calcium 10 mg Orally Once a day 1 tablet 24h Jul, 90 days Active RESULTS No Results PROCEDURES No Known procedures IMMUNIZATIONS No Known Immunizations MEDICAL (GENERAL) HISTORY Type Description Date Medical [...]
--- OUTSIDE RECORDS SUMMARY | 2019-01-15 00:51 | XMS REPORT ---
Author Author CLAUDETTE WILLIAM Organization [facility] Address [address] [place] [address] Care Team Providers Care National Business Director Name Role Phone WILLIAM WILKINS Unavailable PROBLEMS Type Condition ICD9-CM Code ZWH12-YO Code Onset Dates Condition Status SNOMED Code Problem Encounter to establish care Z76.89 Active 587669843 Problem Irregular heart rhythm I49.9 Active 221187396 Problem History of coronary artery disease Z86.79 Active 270168701 Problem Encounter for immunization Z23 Active 683020281 Problem Dental caries K02.9 Active 41570515 Problem Pulmonary emphysema, unspecified emphysema type J43.9 Active 68128980 Problem Gastroesophageal reflux disease with esophagitis K21.0 Active 825982330 Problem Obesity (BMI 30.0-34.9) E66.9 Active 278790187304554 Problem 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 Active 879296952 Problem Elevated hemoglobin A1c R73.09 Active 848200159 Problem Elevated LDL cholesterol level E78.00 Active 335238620 Problem Low serum HDL R74.8 Active 065799939 Problem Elevated fasting glucose R73.01 Active 347981406 Problem Stable angina pectoris I20.8 Active 399905201 ALLERGIES No Information SOCIAL HISTORY Never Assessed PLAN OF CARE VITAL SIGNS MEDICATIONS No Known Medications RESULTS No Results PROCEDURES Procedure Date Ordered Result Body Site LAB NOT BILLED BY [facility] Jul 30, 2016 GLYCATED HEMOGLOBIN TEST Jul 30, 2016 VENIPUNCT, ROUTINE* Jul 30, 2016 IMMUNIZATIONS No Known Immunizations MEDICAL (GENERAL) HISTORY [...]
--- OUTSIDE RECORDS SUMMARY | 2019-01-15 00:52 | XMS REPORT ---
Author Author CLAUDETTE WILLIAM Organization [facility] Address [address] [place] [address] Care Team Providers Care Gold Marker Name Role Phone WILKINSWILLIAM Roberts Unavailable PROBLEMS Type Condition ICD9-CM Code UQJ62-HQ Code Onset Dates Condition Status SNOMED Code Problem Encounter to establish care Z76.89 Active 547056771 Problem Irregular heart rhythm I49.9 Active 008289442 Problem History of coronary artery disease Z86.79 Active 992896234 Problem Encounter for immunization Z23 Active 178435920 Problem Dental caries K02.9 Active 91802043 Problem Pulmonary emphysema, unspecified emphysema type J43.9 Active 67432363 Problem Gastroesophageal reflux disease with esophagitis K21.0 Active 378888269 Problem Obesity (BMI 30.0-34.9) E66.9 Active 425185414702517 Problem 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 Active 491220360 Problem Elevated hemoglobin A1c R73.09 Active 959959665 Problem Elevated LDL cholesterol level E78.00 Active 825158123 Problem Low serum HDL R74.8 Active 148640460 Problem Elevated fasting glucose R73.01 Active 673557538 Problem Stable angina pectoris I20.8 Active 466640536 ALLERGIES No Known Allergies SOCIAL HISTORY Never Assessed PLAN OF CARE Activity Details Follow Up 3 Months Reason:[facility] VITAL SIGNS Height 68 in 2016-08-20 Weight 221.3 lbs 2016-08-20 Temperature 98.0 degrees Fahrenheit 2016-08-20 Heart Rate 68 bpm 2016-08-20 Respiratory Rate 20 2016-08-20 BMI 33.64 kg/m2 2016-08-20 Blood pressure systolic 138 mmHg 2016-08-20 Blood pressure diastolic 86 mmHg 2016-08-20 MEDICATIONS Medication Instructions Dosage Frequency Start Date End Date Duration Status Proventil HFA 108 (90 Base) MCG/ACT Inhalation every 4 hrs 2 puffs as needed 4h Active Atorvastatin Calcium 10 mg Orally Once a day 1 tablet 24h Jul, 90 days Active Nitrostat 0.4 MG Sublingual prn Active Ranexa 500 MG Orally Twice a day 1 tablet 12h Active MetFORMIN HCl ER 500 mg Orally Once a day 1 tablet with evening meal 24h Aug, 90 days Active Coreg 3.125 MG Orally 2 times a day 12h Active Plavix 75 MG Orally Once a day 1 tablet 24h Active Albuterol Sulfate (2.5 MG/3ML) 0.083% Inhalation Three times a day 3 ml 8h Active Protonix 20 mg Orally Once a day 1 tablets 24h Jul, 90 days Active Imdur 120 MG Orally Once a day 1 tablet 24h Active Aspirin 325 MG Orally Once a day 1 tablet 24h Active Advair Diskus 250-50 MCG/DOSE Inhalation Twice a day 1 puff 12h Jul, 12 months Active RESULTS No Results PROCEDURES Procedure Date Ordered Result Body Site [facility] VISIT ESTABLISHED PATIENT August 20, 2016 IMMUNIZATIONS No Known Immunizations MEDICAL (GENERAL) [...]
--- OUTSIDE RECORDS SUMMARY | 2019-01-15 00:52 | XMS REPORT ---
Author Author SOFÍA KELSEY Organization [facility] Address [address] [place] [address] Care Team Providers Care Microsoft Dynamics Manager Architect Name Role Phone KELSEY SOFÍA Unavailable PROBLEMS Type Condition ICD9-CM Code KXJ07-AG Code Onset Dates Condition Status SNOMED Code Problem Encounter to establish care Z76.89 Active 366061979 Problem Irregular heart rhythm I49.9 Active 426393901 Problem History of coronary artery disease Z86.79 Active 710612732 Problem Encounter for immunization Z23 Active 309129871 Problem Dental caries K02.9 Active 40642661 Problem Pulmonary emphysema, unspecified emphysema type J43.9 Active 17279399 Problem Gastroesophageal reflux disease with esophagitis K21.0 Active 246277564 Problem Obesity (BMI 30.0-34.9) E66.9 Active 341497255967051 Problem 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 assessement + exam VITAL SIGNS MEDICATIONS No Known Medications RESULTS No Results PROCEDURES Procedure Date Ordered Result Body Site SCREENING OF A PATIENT Aug 05, 2016 Dental no charge Jul 23, 2016 IMMUNIZATIONS No Known Immunizations MEDICAL (GENERAL) [...]
--- OUTSIDE RECORDS SUMMARY | 2019-01-15 00:52 | XMS REPORT | Continuity of Care Document ---
Author Organization Unknown Address Unknown Phone Unavailable Allergies Active Description Code Type Severity Reaction Onset Reported/Identified Relationship to Patient Clinical Status Yes No Known Drug Allergies [id number] Drug Allergy Unknown N/A 08/20/2013 Medications There is no data. Problems Date Dx Coded Attending Type Code Diagnosis Diagnosed By 02/24/2017 PRIYA ESPINAL APRN Ot J44.9 CHRONIC OBSTRUCTIVE PULMONARY DISEASE, U 02/24/2017 PRIYA ESPINAL APRN Ot J45.909 UNSPECIFIED ASTHMA, UNCOMPLICATED 02/24/2017 PRIYA ESPINAL APRN Ot R06.02 SHORTNESS OF BREATH 02/24/2017 PRIYA ESPINAL APRN Ot Z72.0 TOBACCO USE 03/18/2017 JUNIE ABREU DO Ot J44.9 CHRONIC OBSTRUCTIVE PULMONARY DISEASE, U 03/18/2017 JUNIE ABREU DO Ot J45.909 UNSPECIFIED ASTHMA, UNCOMPLICATED 03/18/2017 JUNIE ABREU DO Ot R06.02 SHORTNESS OF BREATH 04/18/2017 PRIYA ESPINAL APRN Ot J44.9 CHRONIC OBSTRUCTIVE PULMONARY DISEASE, U 04/18/2017 PRIYA ESPINAL APRN Ot J45.909 UNSPECIFIED ASTHMA, UNCOMPLICATED 04/18/2017 PRIYA ESPINAL APRN Ot R06.02 SHORTNESS OF BREATH 04/18/2017 PRIYA ESPINAL APRN Ot Z72.0 TOBACCO USE Procedures There is no data. Results Test Result Range LIPID PANEL - 09/15/17 10:34 CHOLESTEROL, TOTAL 184 mg/dL <200 HDL CHOLESTEROL 36 mg/dL >40 TRIGLYCERIDES 119 mg/dL <150 LDL-CHOLESTEROL 125 mg/dL (calc) NRG CHOL/HDLC RATIO 5.1 (calc) <5.0 NON HDL CHOLESTEROL 148 mg/dL (calc) <130 CMP - 09/15/17 10:34 GLUCOSE 99 mg/dL 65-99 UREA NITROGEN (BUN) 19 mg/dL 7-25 CREATININE 1.13 mg/dL 0.70-1.25 eGFR NON-AFR. ZIMBABWEAN 70 mL/min/1.73m2 > OR=60 eGFR 81 mL/min/1.73m2 > OR=60 BUN/CREATININE RATIO NOT APPLICABLE (calc) 6-22 SODIUM 139 mmol/L 135-146 POTASSIUM 4.9 mmol/L 3.5-5.3 CHLORIDE 105 mmol/L 98-110 CARBON DIOXIDE 26 mmol/L 20-31 CALCIUM 9.5 mg/dL 8.6-10.3 PROTEIN, TOTAL 7.4 g/dL 6.1-8.1 ALBUMIN 4.5 g/dL 3.6-5.1 GLOBULIN 2.9 g/dL (calc) 1.9-3.7 ALBUMIN/GLOBULIN RATIO 1.6 (calc) 1.0-2.5 BILIRUBIN, TOTAL 0.5 mg/dL 0.2-1.2 ALKALINE PHOSPHATASE 63 U/L 40-115 AST 15 U/L 10-35 ALT 13 U/L 9-46 CBC - 09/15/17 10:34 WHITE BLOOD CELL COUNT 9.8 Thousand/uL 3.8-10.8 RED BLOOD CELL COUNT 4.81 Million/uL 4.20-5.80 HEMOGLOBIN 14.9 g/dL 13.2-17.1 HEMATOCRIT 44.7 % 38.5-50.0 MCV 92.9 fL 80.0-100.0 MCH 31.0 pg 27.0-33.0 MCHC 33.3 g/dL 32.0-36.0 RDW 12.1 % 11.0-15.0 PLATELET COUNT 262 Thousand/uL 140-400 MPV 9.6 fL 7.5-12.5 ABSOLUTE NEUTROPHILS 6654 cells/uL 3943-5004 ABSOLUTE LYMPHOCYTES 1901 cells/uL 850-3900 ABSOLUTE MONOCYTES 657 cells/uL 200-950 ABSOLUTE EOSINOPHILS 510 cells/uL 15-500 ABSOLUTE BASOPHILS 78 cells/uL 0-200 NEUTROPHILS 67.9 % NRG LYMPHOCYTES 19.4 % NRG MONOCYTES 6.7 % NRG EOSINOPHILS 5.2 % NRG BASOPHILS 0.8 % NRG THYROID ANALYZER - 09/15/17 10:34 TSH 1.64 mIU/L 0.40-4.50 A1C - 09/15/17 10:34 HEMOGLOBIN A1c 5.3 % of total Hgb <5.7 TSH - 09/16/18 09:51 TSH 1.60 mIU/L 0.40-4.50 Complete blood count (CBC) with automated white blood cell (WBC) differential - 01/14/19 17:05 Blood leukocytes automated count (number/volume) 9.8 10*3/uL 4.3-11.0 Blood erythrocytes automated count (number/volume) 4.84 10*6/uL 4.35-5.85 Venous blood hemoglobin measurement (mass/volume) 14.9 g/dL 13.3-17.7 Blood hematocrit (volume fraction) 44 % 40-54 Automated erythrocyte mean corpuscular volume 91 [foz_us] 80-99 Automated erythrocyte mean corpuscular hemoglobin (mass per erythrocyte) 31 pg 25-34 Automated erythrocyte mean corpuscular hemoglobin concentration measurement (mass/volume) 34 g/dL 32-36 Automated erythrocyte distribution width ratio 13.0 % 10.0- 14.5 Automated blood platelet count (count/volume) 293 10*3/uL 130-400 Automated blood platelet mean volume measurement 9.3 [foz_us] 7.4-10.4 Automated blood neutrophils/100 leukocytes 59 % 42-75 Automated blood lymphocytes/100 leukocytes 25 % 12-44 Blood monocytes/100 leukocytes 9 % 0-12 Automated blood eosinophils/100 leukocytes 7 % 0-10 Automated blood basophils/100 leukocytes 0 % 0-10 Blood neutrophils automated count (number/volume) 5.8 10*3 1.8-7.8 Blood lymphocytes automated count (number/volume) 2.4 10*3 1.0-4.0 Blood monocytes automated count (number/volume) 0.8 10*3 0.0- 1.0 Automated eosinophil count 0.7 10*3/uL 0.0-0.3 Automated blood basophil count (count/volume) 0.0 10*3/uL 0.0-0.1 Comprehensive metabolic panel - 01/14/19 17:05 Serum or plasma sodium measurement (moles/volume) 139 mmol/L 135-145 Serum or plasma potassium measurement (moles/volume) 4.4 mmol/L 3.6-5.0 Serum or plasma chloride measurement (moles/volume) 106 mmol/L 98-107 Carbon dioxide 23 mmol/L 21-32 Serum or plasma anion gap determination (moles/volume) 10 mmol/L 5-14 Serum or plasma urea nitrogen measurement (mass/volume) 16 mg/dL 7-18 Serum or plasma creatinine measurement (mass/volume) 1.35 mg/dL 0.60-1.30 Serum or plasma urea nitrogen/creatinine mass ratio 12 NRG Serum or plasma creatinine measurement with calculation of estimated glomerular filtration rate 53 NRG Serum or plasma glucose measurement (mass/volume) 149 mg/dL 70-105 Serum or plasma calcium measurement (mass/volume) 9.7 mg/dL 8.5-10.1 Serum or plasma total bilirubin measurement (mass/volume) 0.3 mg/dL 0.1-1.0 Serum or plasma alkaline phosphatase measurement (enzymatic activity/volume) 65 U/L 40-136 Serum or plasma aspartate aminotransferase measurement (enzymatic activity/volume) 15 U/L 5-34 Serum or plasma alanine aminotransferase measurement (enzymatic activity/volume) 20 U/L 0-55 Serum or plasma protein measurement (mass/volume) 7.8 g/dL 6.4-8.2 Serum or plasma albumin measurement (mass/volume) 4.4 g/dL 3.2-4.5 CALCIUM CORRECTED 9.4 mg/dL 8.5-10.1 Magnesium - 01/14/19 17:05 Magnesium 2.4 mg/dL 1.8-2.4 PT panel in platelet poor plasma by coagulation assay - 01/14/19 17:05 Prothrombin time (PT) in platelet poor plasma by coagulation assay 12.6 s 12.2-14.7 INR in platelet poor plasma or blood by coagulation assay 0.9 0.8-1.4 Activated partial thromboplastin time (aPTT) in platelet poor plasma bycoagulation assay - 01/14/19 17:05 Activated partial thromboplastin time (aPTT) in platelet poor plasma bycoagulation assay 27 s 24-35 Serum or plasma troponin i.cardiac measurement (mass/volume) - 01/14/19 17:05 Serum or plasma troponin i.cardiac measurement (mass/volume) 0.075 ng/mL <0.028 Myoglobin, serum - 01/14/19 17:05 Myoglobin, serum 97.5 ng/mL 10.0-92.0 Encounters ACCT No. Visit Date/Time Discharge Status Pt. Type Provider Facility Loc./Unit Complaint [id number] 09/16/2018 11:00:00 09/16/2018 23:59:59 CLS Outpatient MADALYN RUSHING [facility] [id number] 09/16/2018 11:00:00 Document Registration [id number] 09/15/2017 10:40:00 Document Registration [id number] 02/21/2017 15:05:00 02/21/2017 23:59:59 CLS Outpatient PRIYA ESPINAL APRN [facility] RT J45.909 [id number] 02/13/2017 09:44:00 02/13/2017 23:59:59 CLS Outpatient JUNIE ABREU DO [facility] RAD R06.02 [id number] 08/20/2013 13:37:00 08/21/2013 11:25:00 DIS Outpatient [id number] 01/14/2019 17:27:00 Document Registration
--- OUTSIDE RECORDS SUMMARY | 2019-01-15 00:52 | XMS REPORT ---
Author Author WILLIAM WILKINS Organization [facility] Address [address] [place] [address] Care Team Providers Care Bulk Filler Name Role Phone WILLIAM WILKINS Unavailable PROBLEMS Type Condition ICD9-CM Code PEL73-SZ Code Onset Dates Condition Status SNOMED Code Problem Encounter to establish care Z76.89 Active 599210371 Problem Irregular heart rhythm I49.9 Active 996726796 Problem History of coronary artery disease Z86.79 Active 911906704 Problem Encounter for immunization Z23 Active 583390093 Problem Dental caries K02.9 Active 19545723 Problem Pulmonary emphysema, unspecified emphysema type J43.9 Active 29142263 Problem Gastroesophageal reflux disease with esophagitis K21.0 Active 972301331 Problem Obesity (BMI 30.0-34.9) E66.9 Active 824807159872825 Problem 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 Active 848691773 Problem Elevated hemoglobin A1c R73.09 Active 788157222 Problem Elevated LDL cholesterol level E78.00 Active 867684660 Problem Low serum HDL R74.8 Active 204980276 Problem Elevated fasting glucose R73.01 Active 348639996 Problem Stable angina pectoris I20.8 Active 469696429 ALLERGIES No Information SOCIAL HISTORY Never Assessed PLAN OF CARE VITAL SIGNS MEDICATIONS No Known Medications RESULTS No Results PROCEDURES Procedure Date Ordered Result Body Site PULMONARY FUNCTION TEST (IN-HOUSE) 2016-08-06 N/A RESPIRATORY FLOW VOLUME LOOP Aug 06, 2016 NEB/MDI DEMO Aug 06, 2016 SPRIOMETRY CHALLENGE Aug 06, 2016 SPIROMETRY Aug 06, 2016 IMMUNIZATIONS No Known Immunizations MEDICAL (GENERAL) [...]
--- OUTSIDE RECORDS SUMMARY | 2019-01-15 00:52 | XMS REPORT ---
Author Author WILLIAM WILKINS Organization [facility] Address [address] [place] [address] Care Team Providers Care Photoengraver Name Role Phone WILLIAM WILKINS Unavailable PROBLEMS Type Condition ICD9-CM Code BRH00-UE Code Onset Dates Condition Status SNOMED Code Problem Encounter to establish care Z76.89 Active 859622629 Problem Irregular heart rhythm I49.9 Active 898964357 Problem History of coronary artery disease Z86.79 Active 451480590 Problem Encounter for immunization Z23 Active 941568041 Problem Dental caries K02.9 Active 53922995 Problem Pulmonary emphysema, unspecified emphysema type J43.9 Active 97157305 Problem Gastroesophageal reflux disease with esophagitis K21.0 Active 132652432 Problem Obesity (BMI 30.0-34.9) E66.9 Active 441093536296878 Problem 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
--- OUTSIDE RECORDS SUMMARY | 2019-01-15 00:52 | XMS REPORT ---
Author Author WILKINSWILLIAM Roberts Organization [facility] Address [address] [place] [address] Care Team Providers Care Computer Analyst Supervisor Name Role Phone WILLIAM WILKINS Unavailable PROBLEMS Type Condition ICD9-CM Code NRU01-AX Code Onset Dates Condition Status SNOMED Code Problem Dental caries K02.9 Active 34095974 Problem Gastroesophageal reflux disease with esophagitis K21.0 Active 837400117 Problem Irregular heart rhythm I49.9 Active 954267984 Problem Elevated LDL cholesterol level E78.00 Active 870136650 Problem Low serum HDL R74.8 Active 581325394 Problem Stable angina pectoris I20.8 Active 470358340 Problem Obesity (BMI 30.0-34.9) E66.9 Active 788512961747130 Problem Moderate episode of recurrent major depressive disorder F33.1 Active 659647462 Problem Periodontal disease K05.6 Active 2179205 Problem Coronary artery disease involving [place] coronary artery of [place] heart without angina pectoris I25.10 Active 8776518245605 Problem Pulmonary emphysema, unspecified emphysema type J43.9 Active 11265893 Problem Dental caries extending into dentine K02.62 Active 302930893 Problem Essential hypertension I10 Active 89532941 ALLERGIES No Known Allergies ENCOUNTERS Encounter Location Date Diagnosis [facility] [id number] [address] Nov, [facility] [id number] [place] [address] October, Moderate episode of recurrent major depressive disorder F33.1 [facility] [address] [id number] [id number] October, Dental caries K02.9 [facility] [address] [id number] [address] Sep, Coronary artery disease involving [place] coronary artery of [place] heart without angina pectoris I25.10 ; Essential hypertension I10 ; Prediabetes R73.03 ; Gastroesophageal reflux disease with esophagitis K21.0 ; Elevated LDL cholesterol level E78.00 ; Dental caries K02.9 ; Low serum HDL R74.8 ; Pulmonary emphysema, unspecified emphysema type J43.9 ; Stable angina pectoris I20.8 ; Irregular heart rhythm I49.9 and Obesity (BMI 30.0-34.9) E66.9 [place] [address] [address] Sep, Coronary artery disease involving [place] coronary artery of [place] heart without angina pectoris I25.10 ; Gastroesophageal reflux disease with esophagitis K21.0 ; Essential hypertension I10 ; Prediabetes R73.03 ; Elevated LDL cholesterol level E78.00 ; Low serum HDL R74.8 ; Pulmonary emphysema, unspecified emphysema type J43.9 ; Stable angina pectoris I20.8 ; Irregular heart rhythm I49.9 ; Obesity (BMI 30.0-34.9) E66.9 and Dental caries K02.9 [place] [address] [address] Sep, Dental examination Z01.20 ; Periodontal disease K05.6 and Dental caries extending into dentine K02.62 [place] [id number] [place] [address] Aug, Pulmonary emphysema, unspecified emphysema type J43.9 [place] [id number] [place] [address] May, Coronary artery disease involving [place] coronary artery of [place] heart without angina pectoris I25.10 ; Pulmonary emphysema, unspecified emphysema type J43.9 ; Elevated fasting glucose R73.01 ; Elevated LDL cholesterol level E78.00 ; Obesity (BMI 30.0-34.9) E66.9 and Gastroesophageal reflux disease with esophagitis K21.0 [place] [id number] [place] [address] Apr, [facility] [address] [id number] Jan, Dental examination Z01.20 [place] [id number] [place] [address] Jan, [place] [id number] [place] [phone] Jan, Pulmonary emphysema, unspecified emphysema type J43.9 ; Gastroesophageal reflux disease with esophagitis K21.0 ; Obesity (BMI 30.0-34.9) E66.9 ; Irregular heart rhythm I49.9 ; History of coronary artery disease Z86.79 and Stable angina pectoris I20.8 [place] [id number] [place] [address] Jan, Dental examination Z01.20 and Dental caries K02.9 [place] [id number] [place] [phone] Aug, [place] [id number] [place] [address] Aug, Pulmonary emphysema, unspecified emphysema type J43.9 ; Elevated hemoglobin A1c R73.09 ; Gastroesophageal reflux disease with esophagitis K21.0 ; Obesity (BMI 30.0-34.9) E66.9 ; Elevated LDL cholesterol level E78.00 ; Low serum HDL R74.8 and Elevated fasting glucose R73.[address] [place] [phone] Jul, Pulmonary emphysema, unspecified emphysema type J43.9 [place] [id number] [place] [address] Jul, [place] [id number] [place] [phone] Jul, Encounter to establish care Z76.89 ; History of coronary artery disease Z86.79 ; Pulmonary emphysema, unspecified emphysema type J43.9 ; 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 ; Stable angina pectoris I20.8 ; Gastroesophageal reflux disease with esophagitis K21.0 ; Encounter for immunization Z23 ; Dental caries K02.9 ; Obesity (BMI 30.0-34.9) E66.9 and Irregular heart rhythm I49.9 [facility] [address] [facility] [id number] [place] [address] 14 Jul, 2016 Dental examination Z01.20 [facility] [address] [facility] [id number] [place] [address] 14 Jul, 2016 Encounter to establish care [...] SOCIAL HISTORY Never Assessed REASON FOR VISIT Hypertension--tcuppettRN, -Needing medication Refills PLAN OF CARE Activity Details Follow Up 3 Months, prn Reason:CH VITAL SIGNS Height 68 in 2017-05-20 Weight 216.8 lbs 2017-05-20 Temperature 98.3 degrees Fahrenheit 2017-05-20 Heart Rate 70 bpm 2017-05-20 Respiratory Rate 18 2017-05-20 BMI 32.96 kg/m2 2017-05-20 Blood pressure systolic 130 mmHg 2017-05-20 Blood pressure diastolic 82 mmHg 2017-05-20 MEDICATIONS Medication Instructions Dosage Frequency Start Date End Date Duration Status Aspirin 325 MG Orally Once a day 1 tablet 24h 90 days Active PredniSONE 20 mg Orally Once a day 2 tablets 24h May, May, 05 days Active Proventil HFA 108 (90 Base) MCG/ACT Inhalation every 4 hrs 2 puffs as needed 4h 12 months Active Plavix 75 MG Orally Once a day 1 tablet 24h 90 days Active Advair Diskus 250-50 MCG/DOSE Inhalation Twice a day 1 puff 12h 14 Jul, 2016 30 Active Coreg 3.125 MG Orally 2 times a day 1 tablet 12h 90 days Active MetFORMIN HCl ER 500 mg Orally Once a day 1 tablet with evening meal 24h Aug, 90 days Active Nitrostat 0.4 MG Sublingual prn Active Albuterol Sulfate (2.5 MG/3ML) 0.083% Inhalation Three times a day 3 ml 8h 12 months Active Symbicort 160-4.5 MCG/ACT Inhalation Twice a day 2 puffs 12h Not-Taking Protonix 20 mg Orally Once a day 1 tablets 24h 90 Active Atorvastatin Calcium 10 mg Orally Once a day 1 tablet 24h 24 Jul, 2016 90 days Active Imdur 120 MG Orally Once a day 1 tablet 24h 90 days Active Ranexa 500 MG Orally Twice a day 1 tablet 12h 90 days Active Lisinopril 2.5 MG Orally Once a day 1 tablet 24h 90 Active RESULTS Name Result Date Reference Range A1C (IN HOUSE) 2017-05-20 A1C IN HOUSE 5.5 4.3 - 5.6 % Previous A1c 5.9 Lot [id number] Exp date 01/25 PROCEDURES Procedure Date Ordered Result Body Site GLYCATED HEMOGLOBIN TEST May 20, 2017 [facility] VISIT ESTABLISHED PATIENT May 20, 2017 INSTRUCTIONS MEDICATIONS ADMINISTERED No Known Medications [...]
--- OUTSIDE RECORDS SUMMARY | 2019-01-15 00:52 | XMS REPORT ---
Author Author LADAN DONALDSON [facility] Address Unknown Care Team Providers [employer] Name Role Phone LADAN DONALDSON Unavailable PROBLEMS Type Condition ICD9-CM Code QPD97-MI Code Onset Dates Condition Status SNOMED Code Problem Obesity (BMI 30.0-34.9) E66.9 Active 006264122309595 Problem Irregular heart rhythm I49.9 Active 973598639 Problem Dental caries K02.9 Active 19063700 Problem Elevated LDL cholesterol level E78.00 Active 980253956 Problem Low serum HDL R74.8 Active 445408243 Problem Stable angina pectoris I20.8 Active 144203321 Problem Periodontal disease K05.6 Active 3504483 Problem Dental caries extending into dentine K02.62 Active 793912740 Problem Pulmonary emphysema, unspecified emphysema type J43.9 Active 16769708 Problem Gastroesophageal reflux disease with esophagitis K21.0 Active 591364584 Problem Essential hypertension I10 Active 97949081 Problem Coronary artery disease involving chicken [place] coronary artery of chicken [place] heart without angina pectoris I25.10 Active [id number] ALLERGIES No Known Allergies ENCOUNTERS Encounter Location Date Diagnosis [facility] [id number] [id number] October, [facility] [id number], [place] [address] Sep, Coronary artery disease involving chicken ranch coronary artery of [place] heart without angina pectoris I25.10 ; Essential hypertension I10 ; Prediabetes R73.03 ; Gastroesophageal reflux disease with esophagitis K21.0 ; Elevated LDL cholesterol level E78.00 ; Dental caries K02.9 ; Low serum HDL R74.8 ; Pulmonary emphysema, unspecified emphysema type J43.9 ; Stable angina pectoris I20.8 ; Irregular heart rhythm I49.9 and Obesity (BMI 30.0-34.9) E66.9 [facility] [id number] [place] [phone] Sep, Coronary artery disease involving chicken ranch coronary artery of [place] heart without angina pectoris I25.10 ; Gastroesophageal reflux disease with esophagitis K21.0 ; Essential hypertension I10 ; Prediabetes R73.03 ; Elevated LDL cholesterol level E78.00 ; Low serum HDL R74.8 ; Pulmonary emphysema, unspecified emphysema type J43.9 ; Stable angina pectoris I20.8 ; Irregular heart rhythm I49.9 ; Obesity (BMI 30.0-34.9) E66.9 and Dental caries K02.9 [place] [id number] [place] [phone] Sep, Dental examination Z01.20 ; Periodontal disease K05.6 and Dental caries extending into dentine K02.62 [place] [id number] [place] [phone] Aug, Pulmonary emphysema, unspecified emphysema type J43.9 [place] [address] [id number] [place] [phone] May, Coronary artery disease involving chicken [place] coronary artery of chicken [place] heart without angina pectoris I25.10 ; Pulmonary emphysema, unspecified emphysema type J43.9 ; Elevated fasting glucose R73.01 ; Elevated LDL cholesterol level E78.00 ; Obesity (BMI 30.0-34.9) E66.9 and Gastroesophageal reflux disease with esophagitis K21.0 [place] [id number] [place] [phone] Apr, [facility] [id number] [place] [phone] Jan, Dental examination Z01.20 [place] [address] [id number] [place] [phone] Jan, [place] [id number] [place] [phone] Jan, Pulmonary emphysema, unspecified emphysema type J43.9 ; Gastroesophageal reflux disease with esophagitis K21.0 ; Obesity (BMI 30.0-34.9) E66.9 ; Irregular heart rhythm I49.9 ; History of coronary artery disease Z86.79 and Stable angina pectoris I20.8 [place] [id number] [place] [phone] Jan, Dental examination Z01.20 and Dental caries K02.[address] [phone] Aug, [address] [phone] Aug, Pulmonary emphysema, unspecified emphysema type J43.9 ; Elevated hemoglobin A1c R73.09 ; Gastroesophageal reflux disease with esophagitis K21.0 ; Obesity (BMI 30.0-34.9) E66.9 ; Elevated LDL cholesterol level E78.00 ; Low serum HDL R74.8 and Elevated fasting glucose R73.[address] [address] Jul, Pulmonary emphysema, unspecified emphysema type J43.9 [place] [id number] [place] [phone] Jul, [address] [phone] Jul, Encounter to establish care Z76.89 ; History of coronary artery disease Z86.79 ; Pulmonary emphysema, unspecified emphysema type J43.9 ; 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 ; Stable angina pectoris I20.8 ; Gastroesophageal reflux disease with esophagitis K21.0 ; Encounter for immunization Z23 ; Dental caries K02.9 ; Obesity (BMI 30.0-34.9) E66.9 and Irregular heart rhythm I49.9 [place] [id number] [place] [phone] 14 Jul, 2016 Dental examination Z01.20 [place] [id number] [place] [phone] 14 Feb, 2017 Encounter to establish care Z76.89 ; History [...] HISTORY Never Assessed REASON FOR VISIT Dental Examination PLAN OF CARE Activity Details Follow Up prn Reason:refer VITAL SIGNS Blood pressure systolic 139 mmHg 2017-02-06 Blood pressure diastolic 80 mmHg 2017-02-06 MEDICATIONS Medication Instructions Dosage Frequency Start Date End Date Duration Status Aspirin 325 MG Orally Once a day 1 tablet 24h Active Atorvastatin Calcium 10 mg Orally Once a day 1 tablet 24h 24 Jul, 2016 90 days Active Protonix 20 mg Orally Once a day 1 tablets 24h Jul, Active Coreg 3.125 MG Orally 2 times a day 12h Active Albuterol Sulfate (2.5 MG/3ML) 0.083% Inhalation Three times a day 3 ml 8h Active Advair Diskus 250-50 MCG/DOSE Inhalation Twice a day 1 puff 12h 14 Jul, 2016 Active Ranexa 500 MG Orally Twice a day 1 tablet 12h Active Plavix 75 MG Orally Once a day 1 tablet 24h Active Imdur 120 MG Orally Once a day 1 tablet 24h Active Nitrostat 0.4 MG Sublingual prn Active Lisinopril 2.5 MG Orally Once a day 1 tablet 24h 90 Active Proventil HFA 108 (90 Base) MCG/ACT Inhalation every 4 hrs 2 puffs as needed 4h Active MetFORMIN HCl ER 500 mg Orally Once a day 1 tablet with evening meal 24h Aug, 90 days Active RESULTS No Results PROCEDURES Procedure Date Ordered Result Body Site LTD ORAL EVALUATION - PROBLEM FOCUS Feb 06, 2017 INTRAORL-PERIAPICAL 1 FILM [id number] Feb 06, 2017 INTRAORL-PERIAPICAL EA ADD FILM Feb 06, 2017 INTRAORL-PERIAPICAL EA ADD FILM Feb 06, 2017 PANORAMIC FILM SEE ALSO CODE [id number] Feb 06, 2017 INTRAORL-PERIAPICAL EA ADD FILM Feb 06, 2017 INSTRUCTIONS MEDICATIONS ADMINISTERED No Known Medications [...]
== END 2019-01-14 19:40 | disposition short-term general hospital (02) ==
LOC: EDUNIT# 16:59 → ER 17:00
DX: I25.10 Atherosclerotic heart disease of native coronary artery without angina pectoris (principal); R74.8 Abnormal levels of other serum enzymes; J44.9 Chronic obstructive pulmonary disease, unspecified; I10 Essential (primary) hypertension; E78.00 Pure hypercholesterolemia, unspecified; K21.9 Gastro-esophageal reflux disease without esophagitis; F41.9 Anxiety disorder, unspecified; F17.210 Nicotine dependence, cigarettes, uncomplicated; Z87.01 Personal history of pneumonia (recurrent); Z95.1 Presence of aortocoronary bypass graft; Z79.82 Long term (current) use of aspirin; Z79.02 Long term (current) use of antithrombotics/antiplatelets; Z79.51 Long term (current) use of inhaled steroids; Z82.49 Family history of ischemic heart disease and other diseases of the circulatory system
CPT/HCPCS: 36415; 71045; 80053; 83735; 83874; 84484; 85025; 85610; 85730; 93005; 93041

== ENCOUNTER → 2022-10-24 | Outpatient (CLI) | payer MEDICARE, MEDICAID ==
[~2022-10-24] MED LIST changes: +RT-ALBUTEROL SULF 2.5 MG/3 ML PRE-MIX VIAL INH ONE
== END ==
LOC: RT 08:43
PROVIDERS: ATTEND Nurse Practitioner Family
DX: J44.1 Chronic obstructive pulmonary disease with (acute) exacerbation (principal)
CPT/HCPCS: 94060; 94726; 94729